=== PATIENT | female | born 1960 | race Caucasian/White ===

== ENCOUNTER 2016-10-28 03:05 | Inpatient (IN) | payer BC ==
[2016-10-28] VITALS (24 sets, daily range): BP systolic 103–160; BP diastolic 52–142; PULSE 84–107; RESP 16–35; TEMP 98.5; Ht 152.4 cm; Wt 101.6 kg
[~2016-10-28] VITALS: Ht 152.4 cm; Wt 101.6 kg
[~2016-10-28 03:05] MED LIST: LORAZEPAM 2 MG INJ ONE
[2016-10-28] MEDS ORDERED: SOD CHLORIDE 0.9% 1,000 ML IV STA (03:09)
[2016-10-28] MEDS ORDERED: LORAZEPAM 2 MG INJ IV STA (03:09)
[2016-10-28 03:21] LABS: ADD SCAN DIFF NO
[2016-10-28 03:23] LABS: ABNORMAL IP MESSAGE 1; BASOPHIL # 0.1 10^3/ul (0.0-0.1); BASOPHILS % 0.3 % (0.0-2.0); EOSINOPHILS # 0.2 10^3/ul (0.0-0.5); EOSINOPHILS % 0.8 % (0.0-7.0); HEMATOCRIT 43.6 % (37.0-47.0); HEMOGLOBIN 12.5 g/dl (12.0-16.0); LYMPHOCYTES % 30.8 % (15.0-51.0); MEAN CORPUSCULAR HEMOGLOBIN 24.1 pg (29.0-33.0); MEAN CORPUSCULAR HGB CONC 28.7 g/dl (32.0-37.0); MEAN PLATELET VOLUME 11.4 fl (7.4-10.4); MONOCYTE # 1.8 10^3/ul (0.3-0.9); MONOCYTES % 6.1 % (0.0-11.0); NEUTROPHIL # 17.7 10^3/ul (1.6-7.5); NEUTROPHILS % 60.5 % (39.0-77.0); PLATELET COUNT 383 10^3/UL (140-415); RED BLOOD COUNT 5.19 10^6/ul (4.20-5.40); RED CELL DISTRIBUTION WIDTH 15.8 % (11.5-14.5); WHITE BLOOD COUNT 29.3 10^3/ul (4.8-10.8)
[2016-10-28 03:44] LABS: ALANINE AMINOTRANSFERASE 26 IU/L (13-69); ALBUMIN 4.9 g/dl (3.3-4.9); ALKALINE PHOSPHATASE 164 IU/L (42-121); ANION GAP 30 (8-16); ASPARTATE AMINO TRANSFERASE 29 IU/L (15-46); BILIRUBIN,INDIRECT 0.1 mg/dl (0-1.1); BILIRUBIN,TOTAL 0.1 mg/dl (0.2-1.3); BLOOD UREA NITROGEN 16 mg/dl (7-20); CALCIUM 9.1 mg/dl (8.4-10.2); CARBON DIOXIDE 13 mmol/L (21-31); CHLORIDE 108 mmol/L (97-110); CREATININE 1.11 mg/dl (0.44-1.00); GLUCOSE 207 mg/dl (70-220); POTASSIUM 3.4 mmol/L (3.5-5.1); SODIUM 148 mmol/L (135-144); TOTAL PROTEIN 8.4 g/dl (6.1-8.1)
--- NOTE | 2016-10-28 03:49 | RADRPT ---
PROCEDURE: CT BRAIN WITHOUT CONTRAST CLINICAL INDICATION: 56-year-old female with seizure. TECHNIQUE: The study was performed utilizing Kaminario VCT 64-slice CT scanner. Direct axial sections were obtained from the foramen magnum to the vertex without the use of intravenous contrast material. Sagittal and coronal reformations were obtained. One or more of the following dose reduc tion techniques were utilized: automated exposure control, adjustment of the mA and/or kV according to patient's size or use of iterative reconstruction technique. The the patient was rescanned second di to motion artifact. The images were viewed on a PACS workstation. CTD/vol = 89.8 mGy; Total Ex am DLP = 1440.5 mGy-cm. COMPARISON: None. FINDINGS: There has been prior right frontotemporal and left frontal craniotomies. There is extensive bifront al encephalomalacia. There is an acute right frontal intracranial hemorrhage measuring approximatel y 3.2 x 4.6 x 3.8 cm with surrounding edema and localized mass effect. There is mild prominence of t he sulci and cisternal spaces consistent with diffuse volume loss. There is no significant midline s hift. The visualized paranasal sinuses and mastoid air cells are without significant abnormal soft t issue. IMPRESSION: 1. Prior right frontotemporal and left frontal craniotomies. 2. Acute right frontal intracranial hemorrhage with surrounding edema and localized mass effect. 3. Extensive bifrontal encephalomalacia. 4. Mild diffuse volume loss. CRITICAL RESULTS: A call report was made to [facility] ER Dr. Rutledge on October 28, 2016 at 03:44 a.m. .Baljinder Wren MD, Date Time Electronically viewed and signed by .Baljinder Wren MD, on 10/28/2016 03:49 .M/
--- NOTE | 2016-10-28 03:54 | RADRPT ---
PROCEDURE: CHEST - 1 VIEW CLINICAL INDICATION: 56-year-old female with seizure. TECHNIQUE: A single frontal AP upright view of the chest was performed. The images were reviewed on a PACS workstation. COMPARISON: None. FINDINGS: The cardiomediastinal silhouette is mildly enlarged. There is a shallow inspiration. There is bila teral lower lung zone subsegmental atelectasis. There is no evidence for an infiltrate. There is n o evidence for congestive heart failure. There is no evidence for pneumothorax. The osseous structur es are intact. IMPRESSION: 1. Cardiomegaly. 2. Shallow inspiration. 3. Bilateral lower lung zone subsegmental atelectasis. .Baljinder Wren MD, MD Date Time Electronically viewed and signed by .Baljinder Wren MD, on 10/28/2016 03:54 .M/
[2016-10-28 03:57] LABS: TROPONIN-I < 0.012 ng/ml (0.00-0.12)
[2016-10-28] MEDS ORDERED: LEVETIRACETAM 1000 MG (PMX) 100 ML IVPB ONE (04:00)
[2016-10-28] MEDS ORDERED: SOD CHLORIDE 0.9% 100 ML ONE (04:25)
[2016-10-28] MEDS ORDERED: IOHEXOL 300MG/ML 150 ML BTL ONE (04:25)
[2016-10-28 04:40] LABS: INR 1.08; PT RATIO 1.1
[2016-10-28] MEDS ORDERED: LORAZEPAM 2 MG INJ IV ONE (05:00)
--- NOTE | 2016-10-28 05:24 | RADRPT ---
PROCEDURE: CTA HEAD October 28, 2016 at 04:46 a.m. CLINICAL INDICATION: 56-year-old female with right frontal intracranial hemorrhage. TECHNIQUE: The study was performed utilizing a [employer] VCT 64-slice multidetector CT scanner . Direct spiral axial sections were obtained through the intracranial vasculature with the use of 10 0 cc of Isovue 370 nonionic intravenous contrast material. One or more of the following dose reduct ion techniques were utilized: automated exposure control, adjustment of the mA and/or kV according t o patient's size or use of iterative reconstruction technique. Coronal and sagittal as well as maxi mal intensity projection reformations were obtained. The images were reviewed on a PACS workstation. COMPARISON: CT brain October 28, 2016 at 03:25 a.m. FINDINGS: There is a hypoplastic left A1 segment of the anterior cerebral artery. The [place] and ve rtebrobasilar system is without evidence for stenosis or occlusion. There is mild mass effect on the right sylvian branches of the middle cerebral artery with inferior displacement. There is no evide nce for an aneurysm or arteriovenous malformation. The visualized sinuses and dural veins are witho ut abnormality. IMPRESSION: 1. 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 2. Mild mass effect with inferior displacement of the sylvian branches of the right middle cerebral artery. 3. No CTA evidence for an arteriovenous malformation. .Baljinder Wren MD, Date Time Electronically viewed and signed by .Baljinder Wren MD, on 10/28/2016 05:24 .M/
--- NOTE | 2016-10-28 05:47 | ERA ---
ER Documentation Chief Complaint Date/Time DATE: 10/28/16 TIME: 05:45 Chief Complaint c/o SE x 1 @ home. Post-ictal. HPI 76-year-old female with us with a seizure at home per family. She was seen earlier than that on the in the hospital for muscle spasm and trapezius region. Patient had 20 seconds of tonic-clonic activity with tongue biting per family. Postictal upon arrival to the ER. Remote history of seizure disorder 5 years ago, however not on any meds with no pregnancies in the past 5 years. ROS All systems reviewed and are negative except as per history of present illness. Medications Home Meds No Active Prescriptions or Reported Meds Allergies Allergies: Coded Allergies: No Known Allergy (Unverified , 10/28/16) PMhx/Soc History of Surgery: Yes (brain surgery 5 yrs ago) Anesthesia Reaction: No Hx Neurological Disorder: Yes (SE) Hx Respiratory Disorders: No Hx Cardiac Disorders: No Hx Psychiatric Problems: No Hx Miscellaneous Medical Probl: No Hx Alcohol Use: No Hx Substance Use: No Hx Tobacco Use: No Smoking Status: Never smoker Physical Exam Vitals Vital Signs Date Time Temp Pulse Resp B/P Pulse Ox O2 Delivery O2 Flow Rate FiO2 10/28/16 05:30 98.1 111 18 156/76 96 Nasal Cannula 4.0 10/28/16 05:00 110 20 178/86 96 Nasal Cannula 4.0 10/28/16 04:21 132 22 175/88 100 Non Rebreather 15.0 10/28/16 03:43 109 22 165/71 100 Non Rebreather 15.0 10/28/16 03:11 98.5 118 26 211/98 100 Physical Exam Const: [] Head: Atraumatic Eyes: Normal Conjunctiva ENT: Normal External Ears, Nose and Mouth. Neck: Full range of motion..~ No meningismus. Resp: Clear to auscultation bilaterally Cardio: Regular rate and rhythm, no murmurs Abd: Soft, non tender, non distended. Normal bowel sounds Skin: No petechiae or rashes Back: No midline or flank tenderness Ext: No cyanosis, or edema Neur: Lethargic but arousable Psych: Normal Mood and Affect Result Diagram: 10/28/16 0312 10/28/16 0312 Results 24 hrs Laboratory Tests Test 10/28/16 03:12 10/28/16 03:15 White Blood Count 29.310^3/ul Red Blood Count 5.1910^6/ul Hemoglobin 12.5g/dl Hematocrit 43.6% Mean Corpuscular Volume 84.0fl Mean Corpuscular Hemoglobin 24.1pg Mean Corpuscular Hemoglobin Concent 28.7g/dl Red Cell Distribution Width 15.8% Platelet Count 28099^3/UL Mean Platelet Volume 11.4fl Neutrophils % 60.5% Lymphocytes % 30.8% Monocytes % 6.1% Eosinophils % 0.8% Basophils % 0.3% Nucleated Red Blood Cells % 0.0/100WBC Neutrophils # 17.710^3/ul Lymphocytes # 9.010^3/ul Monocytes # 1.810^3/ul Eosinophils # 0.210^3/ul Basophils # 0.110^3/ul Nucleated Red Blood Cells # 0.010^3/ul Prothrombin Time 14.0Sec Prothrombin Time Ratio 1.1 INR International Normalized Ratio 1.08 Activated Partial Thromboplast Time 25.0Sec Sodium Level 148mmol/L Potassium Level 3.4mmol/L Chloride Level 108mmol/L Carbon Dioxide Level 13mmol/L Anion Gap 30 Blood Urea Nitrogen 16mg/dl Creatinine 1.11mg/dl Glucose Level 207mg/dl Calcium Level 9.1mg/dl Total Bilirubin 0.1mg/dl Direct Bilirubin 0.00mg/dl Indirect Bilirubin 0.1mg/dl Aspartate Amino Transf (AST/SGOT) 29IU/L Alanine Aminotransferase (ALT/SGPT) 26IU/L Alkaline Phosphatase 164IU/L Troponin I < 0.012ng/ml Total Protein 8.4g/dl Albumin 4.9g/dl Globulin 3.50g/dl Albumin/Globulin Ratio 1.40 Bedside Glucose 194mg/dL Current Medications Medications (Trade) Dose Ordered Sig/Tr Route PRN Reason Start Time Stop Time Status Last Admin Dose Admin Sodium Chloride (NS) 1,000 ml @ 1,000 mls/hr Q1H STAT IV 10/28/16 03:09 10/28/16 04:08 DC 10/28/16 03:38 Lorazepam 2 mg 2 mg ONCE STAT IV 10/28/16 03:09 10/28/16 03:11 DC 10/28/16 03:09 Levetiracetam 100 ml @ 400 mls/hr ONCE ONCE IVPB 10/28/16 04:00 10/28/16 04:14 DC 10/28/16 04:12 Sodium Chloride (NS) 100 ml @ ud STK-MED ONCE .ROUTE 10/28/16 04:25 10/28/16 04:26 DC 10/28/16 04:53 Iohexol (Omnipaque 300mg/ ml) 150 ml STK-MED ONCE .ROUTE 10/28/16 04:25 10/28/16 04:26 DC 10/28/16 04:52 Lorazepam (Ativan) 2 mg ONCE ONCE IV 10/28/16 05:00 10/28/16 05:01 DC 10/28/16 04:58 Procedures/MDM Emergency room course: Patient given Ativan and loaded with Keppra intravenously. Patient may remains lethargic but arousable. Maintaining airway with gag reflex. His O2 sats normal. EKG: Rate/Rhythm: Normal Sinus Rhythm QRS, ST, T-waves: No changes consistent w/ acute ischemia Impression: No evidence of ischemia or arrhythmia Chest X-ray 1V Interpreted by me: Soft Tissue: No acute abnormalities Bones: No acute abnormalities Mediastinum/Cardiac Silhouette/Lungs: No acute abnormalities Initial CT head read as intracerebral hemorrhage per radiology. Spoke to neurosurgeon on-call Dr. Mccullough, recommended CTA to rule out AVM. CTA shows no evidence of AVM. Patient will be admitted to intensive care unit to hospitalist Critical Care: Time: 45 minutes Treatments/Evaluations: Close monitoring and treatment of unstable vital signs, cardiorespiratory, and neurologic status, while maintaining tight balance of fluid, respiratory, and cardiac interventions. Departure Diagnosis: Primary Impression: Seizure disorder Additional Impression: Intracerebral hemorrhage Qualified Code: I61.9 - Nontraumatic intracerebral hemorrhage, unspecified cerebral location, unspecified laterality Condition: Critical LEONIE COVARRUBIAS Oct 28, 2016 05:47
[2016-10-28] MEDS: POTASSIUM CHLORIDE 40 MEQ in SOD CHLORIDE 0.9% 1,000 ML IV SCH ×2 (08:05→16:42)
[2016-10-28] MEDS ORDERED: INSULIN HUMAN REGULAR 100 UNIT in SOD CHLORIDE 0.9% 99 ML IV SCH (09:00)
[2016-10-28] MEDS: FAMOTIDINE 20 MG TAB PO SCH ×2 (09:00→21:00)
[2016-10-28] MEDS ORDERED: PROPOFOL 100 ML IV SCH (09:00)
[2016-10-28] MEDS ORDERED: MIDAZOLAM (DRIP) 50 mg/50 mL 50 ML IV SCH (09:00)
[2016-10-28] MEDS ORDERED: DEXTROSE 50% 50 ML SYRINGE IV PRN ×4 (09:00→14:00)
[2016-10-28] MEDS: ACCU-CHEK XX SCH ×5 (09:59→13:04)
--- NOTE | 2016-10-28 11:38 | RADRPT ---
PROCEDURE: CT Brain without contrast. CLINICAL INDICATION: Intracerebral hemorrhage TECHNIQUE: Routine CT scan of the brain was performed on a high resolution multi detector scanner without intravenous contrast. One or more of the following dose reduction techniques were used: Auto mated exposure control; Adjustment of the mA and/or kV according to patient size; Use of iterative r econstruction technique. CTDI = 43 mGy. DLP = 630 mGy-cm. COMPARISON: No prior relevant examinations are available for comparison. FINDINGS: Hemorrhage: Right frontal hemorrhagic contusion and is unchanged measuring approximately 3.9 x 4.6 x 3.5 cm. Small left frontal petechial hemorrhage and subarachnoid hemorrhage is similar in appearan ce. This produces minimal local mass effect without midline shift or herniation. Edema is present surrounding margins of the hematoma which is slightly increased from prior examination. Acute ischemic changes: No evidence of acute ischemic changes. Parenchymal volume: Mild central parenchymal volume loss is evident. Ventricular system: Moderate disproportionate enlargement of the lateral and third ventricles is sim ilar in appearance compatible with hydrocephalus. Chronic changes: Apparent encephalomalacia from probable prior contusion involving the bilateral inf erior frontal lobes again noted. Mild chronic-appearing microvascular ischemic changes of the supra tentorial white matter. Atherosclerotic calcifications of the cavernous portions of both internal c arotid arteries are present. Extracranial soft tissues: Unremarkable. Calvarium: No fractures. Defects from prior bilateral frontal craniotomies again noted. Paranasal sinuses: Visualized paranasal sinuses are clear. Mastoid air cells: Visualized mastoid air cells are clear. IMPRESSION: No evidence of new intracranial hemorrhage. Unchanged appearance of bilateral frontal hemorrhagic contusions, right greater than left. Mild prominence of the ventricular system suggestive of mild hydrocephalus is unchanged. RPTAT: AADD .Candido Ray MD, MD Date Time Electronically viewed and signed by .Candido Ray MD, MD on 10/28/2016 11:38 .B/
[2016-10-28] MEDS ORDERED: GLUCOSE GEL 15 GRAM TUBE BUCCAL PRN (14:00)
[2016-10-28] MEDS ORDERED: GLUCAGON 1 MG INJ IM PRN (14:00)
[2016-10-28] MEDS ORDERED: GLUCOSE GEL 15 GRAM TUBE PO PRN ×2 (14:00)
--- NOTE | 2016-10-28 15:08 | HP ---
Date/Time of Note Date/Time of Note DATE: 10/28/16 TIME: 15:05 Assessment/Plan VTE Prophylaxis VTE Prophylaxis Intervention: SCD's Lines/Catheters IV [facility] [place] Urinary Cath still in place: Yes Reason Cath still needed: other (indicate) (critically ill) Assessment/Plan Assessment/Plan 56 yo F with pmhx brain tumor sp resection brought in by family following a seizure, neuroimaging revealed a 4 cm R frontal ICH. #ICH: neurosurgery following BP control, BG control speech eval PT/OT evals once additional neuroimaging obtained cont keppra, defer length of therapy or selection of alternate agent to neurosurgery Etio of ICH unclear. Pt without a h/o HTN and BPs have been ok here Pt not on any anticoagulation as outpatient cont ICU level care SCDs only HPI/ROS Admit Date/Time Admit Date/Time Oct 28, 2016 at 05:48 Hx of Present Illness 56 yo F with previous h/o brain tumor (type unknown) sp resection several years ago presented following a seizure this morning. Imaging obtained in the ER notable for an ICH. Pt denies any headache, chest pain. No previous ICH hx. Per discussion with family, at this time pt is a little sleepy but otherwise nearly at her baseline mental status 10pROS neg except as per HPI PMH/Family/Social Past Medical History h/o brain tumor sp resection, specifics unk Social History lives in the community Smoking Status: Never smoker Exam/Review of Systems Vital Signs Vitals Vital Signs Date Time Temp Pulse Resp B/P Pulse Ox O2 Delivery O2 Flow Rate FiO2 10/28/16 13:30 90 26 145/84 97 10/28/16 13:00 Nasal Cannula 10/28/16 12:30 98.8 10/28/16 10:08 4.0 Intake and Output 10/27/16 10/27/16 10/28/16 15:00 23:00 07:00 Intake Total 1100 ml Balance 1100 ml Exam Exam nad, face symmetric, EOMI no mrg lungs clear abd soft no rashes moves exts freely CT results reviewed Labs Result Diagram: 10/28/1631110/28/16311 Medications Medications Current Medications Potassium Chloride/Sodium Chloride (KCl/NS) 1,020 ml @ 100 mls/hr [id number] IV Last administered on 10/28/16t 08:05; Admin Dose 100 MLS/HR; Start 10/28/16 at 06:30 Famotidine (Pepcid) 20 mg Q12 PO ; Start 10/28/16 at 09:00 Dextrose (D50w Syringe) 25 ml Q15M PRN IV Till BS 80 mg/dL or above x2; Start 10/28/16 at 09:00 Dextrose (D50w Syringe) 50 ml Q15M PRN IV Till BS 80 mg/dL or above x2; Start 10/28/16 at 09:00 Insulin Aspart (Novolog Insulin Pen) NOVOLOG *MILD* ALGORI... Q4 SC ; Start at 17:00 Miscellaneous Information 1 ea NOTE XX ; Start 10/28/16 at 14:00 Glucose (Glutose) 15 gm Q15M PRN PO DECREASED GLUCOSE; Start 10/28/16 at 14:00 Glucose (Glutose) 22.5 gm Q15M PRN PO DECREASED GLUCOSE; Start 10/28/16 at 14: 00 Dextrose (D50w Syringe) 25 ml Q15M PRN IV DECREASED GLUCOSE; Start 10/28/16 at 14:00 Dextrose (D50w Syringe) 50 ml Q15M PRN IV DECREASED GLUCOSE; Start 10/28/16 at 14:00 Glucagon (Glucagen) 1 mg Q15M PRN IM DECREASED GLUCOSE; Start 10/28/16 at 14:00 Glucose (Glutose) 15 gm Q15M PRN BUCCAL DECREASED GLUCOSE; Start 10/28/16 at 14 :00 BERKLEY QUINTERO MD Oct 28, 2016 15:07
[2016-10-28] MEDS: INSULIN ASPART [NOVOLOG] 3 ML PEN SC SCH ×2 (17:00→21:00)
[2016-10-28] MEDS ORDERED: MIDAZOLAM 1 MG/ML 2 ML INJ IV ONE (19:30)
[2016-10-28] MEDS ORDERED: MIDAZOLAM 1 MG/ML 2 ML INJ IV PRN (20:00)
[2016-10-28] MEDS: LEVETIRACETAM 500 MG (PMX) 100 ML IVPB SCH (21:30)
--- NOTE | 2016-10-28 22:31 | CONS ---
Date/Time of Note Date/Time of Note DATE: 10/28/16 TIME: 22:23 Assessment/Plan Assessment/Plan Chief Complaint/Hosp Course PHYSICAL EXAMINATION: GENERAL: Not in acute distress, lying in bed. HEENT: Normocephalic, atraumatic head. NECK: No carotid bruits. No thyromegaly. LUNGS: Clear to auscultation bilaterally. CARDIAC: Normal cardiac rhythm and sounds. ABDOMEN: Soft. EXTREMITIES: No cyanosis, clubbing, or edema. Tenderness to palpation in the right buttock and lumbar spinous processes. NEUROLOGIC: She is awake, alert, and oriented x 2 with fluent speech. Cranial nerve examination shows intact visual hunt bilaterally. Pupils round, reactive to light from 3 to 2 mm bilaterally. Extraocular movements intact without nystagmus. Symmetrical face. Preserved facial strength and sensation. Tongue is in midline. Palate elevates symmetrically. Motor strength examination is preserved in all extremities. Normal bulk, tone, and strength. Sensory examination shows normal perception of pinprick and touch. Deep tendon reflexes 2+ . Equivocal toes bilaterally. Coordination preserved on [id number] testing. No dysmetria or tremor. Gait was not assessed. IMPRESSION: Frontal astrocytoma, s/p chemo, radiation and surgery 5 years ago. Right frontal ICH, also left frontal possible contusion on CT. MRI brain pending. No hx of trauma or signs of trauma. Bleeding may relate to neoplasm. Now on keppra. No seizures. NS on case. Problems: Consultation Date/Type/Reason Admit Date/Time Oct 28, 2016 at 05:48 Type of Consultation: neurology Hx of Present Illness 56 y/o female admitted following witnessed seizure, found to have right frontal hemorrhage, some left frontal possible contusion as well. No definite hx of recent trauma. 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 Never seizures. Now started on keppra, no seizures since admission. EEG intermittent right frontal sharps, no ongoing seizures Past Medical History Medical History: diabetes, peptic ulcer disease Past Surgical History neurosurgery 5 years ago Family History Significant Family History: no pertinent family hx Social History Alcohol Use: none Smoking Status: Never smoker Drug Use: none Exam/Review of Systems Vital Signs Vitals Vital Signs Date Time Temp Pulse Resp B/P Pulse Ox O2 Delivery O2 Flow Rate FiO2 10/28/16 19:00 88 33 129/61 98 Nasal Cannula 10/28/16 16:00 98.4 10/28/16 10:08 4.0 Intake and Output 10/27/16 10/27/16 10/28/16 15:00 23:00 07:00 Intake Total 1100 ml Balance 1100 ml Results Result Diagram: 10/28/16 0312 10/28/16 0312 Results 24 hrs Laboratory Tests Test 10/28/16 03:12 10/28/16 03:15 10/28/16 09:42 10/28/16 13:03 White Blood Count 29.3 H Red Blood Count 5.19 Hemoglobin 12.5 Hematocrit 43.6 Mean Corpuscular Volume 84.0 Mean Corpuscular Hemoglobin 24.1 L Mean Corpuscular Hemoglobin Concent 28.7 L Red Cell Distribution Width 15.8 H Platelet Count 383 Mean Platelet Volume 11.4 H Neutrophils % 60.5 Lymphocytes % 30.8 Monocytes % 6.1 Eosinophils % 0.8 Basophils % 0.3 Nucleated Red Blood Cells % 0.0 Neutrophils # 17.7 H Lymphocytes # 9.0 H Monocytes # 1.8 H Eosinophils # 0.2 Basophils # 0.1 Nucleated Red Blood Cells # 0.0 Prothrombin Time 14.0 Prothrombin Time Ratio 1.1 INR International Normalized Ratio 1.08 Activated Partial Thromboplast Time 25.0 Sodium Level 148 H Potassium Level 3.4 L Chloride Level 108 Carbon Dioxide Level 13 L Anion Gap 30 H Blood Urea Nitrogen 16 Creatinine 1.11 H Glucose Level 207 Calcium Level 9.1 Total Bilirubin 0.1 L Direct Bilirubin 0.00 Indirect Bilirubin 0.1 Aspartate Amino Transf (AST/SGOT) 29 Alanine Aminotransferase (ALT/SGPT) 26 Alkaline Phosphatase 164 H Troponin I < 0.012 Total Protein 8.4 H Albumin 4.9 Globulin 3.50 H Albumin/Globulin Ratio 1.40 Bedside Glucose 194 126 113 Test 10/28/16 19:11 10/28/16 21:36 Bedside Glucose 124 111 Medications Medications Current Medications Potassium Chloride/Sodium Chloride (KCl/NS) 1,020 ml @ 100 mls/hr [id number] IV Last administered on 10/28/16t 16:42; Admin Dose 100 MLS/HR; Start 10/28/16 at 06:30 Famotidine (Pepcid) 20 mg Q12 PO ; Start 10/28/16 at 09:00 Dextrose (D50w Syringe) 25 ml Q15M PRN IV Till BS 80 mg/dL or above x2; Start 10/28/16 at 09:00 Dextrose (D50w Syringe) 50 ml Q15M PRN IV Till BS 80 mg/dL or above x2; Start 10/28/16 at 09:00 Insulin Aspart (Novolog Insulin Pen) NOVOLOG *MILD* ALGORI... Q4 SC ; Start at 17:00 Miscellaneous Information 1 ea NOTE XX ; Start 10/28/16 at 14:00 Glucose (Glutose) 15 gm Q15M PRN PO DECREASED GLUCOSE; Start 10/28/16 at 14:00 Glucose (Glutose) 22.5 gm Q15M PRN PO DECREASED GLUCOSE; Start 10/28/16 at 14: 00 Dextrose (D50w Syringe) 25 ml Q15M PRN IV DECREASED GLUCOSE; Start 10/28/16 at 14:00 Dextrose (D50w Syringe) 50 ml Q15M PRN IV DECREASED GLUCOSE; Start 10/28/16 at 14:00 Glucagon (Glucagen) 1 mg Q15M PRN IM DECREASED GLUCOSE; Start 10/28/16 at 14:00 Glucose 15 gm 15 gm Q15M PRN BUCCAL DECREASED GLUCOSE; Start 10/28/16 at 14:00 Levetiracetam (Keppra 500 Mg/ 100ml (Pmx)) 100 ml @ 400 mls/hr Q12 IVPB Last administered on 10/28/16t 21:30; Admin Dose 400 MLS/HR; Start 10/28/16 at 21:00 Midazolam HCl (Versed) 1 mg ONCE PRN IV ANXIETY; Start 10/28/16 at 20:00 MONA CAMP MD Oct 28, 2016 22:31
[2016-10-29] VITALS (23 sets, daily range): BP systolic 102–153; BP diastolic 62–112; PULSE 81–95; RESP 16–37
[2016-10-29] MEDS: INSULIN ASPART [NOVOLOG] 3 ML PEN SC SCH ×6 (01:00→21:00)
[2016-10-29] MEDS: POTASSIUM CHLORIDE 40 MEQ in SOD CHLORIDE 0.9% 1,000 ML IV SCH (06:23)
[2016-10-29 06:57] LABS: ADD SCAN DIFF NO
[2016-10-29 07:07] LABS: BASOPHIL # 0.1 10^3/ul (0.0-0.1); BASOPHILS % 0.4 % (0.0-2.0); EOSINOPHILS # 0.2 10^3/ul (0.0-0.5); EOSINOPHILS % 0.9 % (0.0-7.0); HEMATOCRIT 36.4 % (37.0-47.0); HEMOGLOBIN 11.3 g/dl (12.0-16.0); LYMPHOCYTES # 1.9 10^3/ul (0.8-2.9); LYMPHOCYTES % 11.9 % (15.0-51.0); MEAN CORPUSCULAR HEMOGLOBIN 24.4 pg (29.0-33.0); MEAN CORPUSCULAR VOLUME 78.6 fl (82.0-101.0); MEAN PLATELET VOLUME 10.8 fl (7.4-10.4); MONOCYTE # 0.7 10^3/ul (0.3-0.9); MONOCYTES % 4.2 % (0.0-11.0); NEUTROPHIL # 13.4 10^3/ul (1.6-7.5); NEUTROPHILS % 82.1 % (39.0-77.0); PLATELET COUNT 310 10^3/UL (140-415); RED BLOOD COUNT 4.63 10^6/ul (4.20-5.40); RED CELL DISTRIBUTION WIDTH 15.4 % (11.5-14.5); WHITE BLOOD COUNT 16.3 10^3/ul (4.8-10.8)
[2016-10-29 07:24] LABS: INR 1.11; PROTIME 14.3 Sec (12.2-14.2); PT RATIO 1.1
[2016-10-29 07:26] LABS: PARTIAL THROMBOPLASTIN TIME 29.8 Sec (25.0-35.0)
[2016-10-29 08:20] LABS: CALCIUM 8.4 mg/dl (8.4-10.2); CREATININE 0.52 mg/dl (0.44-1.00); POTASSIUM 4.4 mmol/L (3.5-5.1)
[2016-10-29] MEDS: FAMOTIDINE 20 MG TAB PO SCH ×2 (08:30→21:03)
[2016-10-29] MEDS: LEVETIRACETAM 500 MG (PMX) 100 ML IVPB SCH (08:30)
--- NOTE | 2016-10-29 11:36 | PN ---
Date/Time of Note Date/Time of Note DATE: 10/29/16 TIME: 11:35 Assessment/Plan VTE Prophylaxis VTE Prophylaxis Intervention: SCD's Lines/Catheters IV Catheter Type (from Nrsg): Peripheral IV Urinary Cath still in place: Yes Reason Cath still needed: other (indicate) (critically ill) Assessment/Plan Assessment/Plan 56 yo F with pmhx brain tumor sp resection brought in by family following a seizure, neuroimaging revealed a 4 cm R frontal ICH. #ICH: neurosurgery and neurology following BP control, BG control sp speech eval PT/OT evals once additional neuroimaging obtained cont keppra, defer length of therapy or selection of alternate agent to neurosurgery/neurology Etio of ICH unclear. Pt without a h/o HTN and BPs have been ok here Pt not on any anticoagulation as outpatient cont ICU level care-->to floor when cleared by neuro/neurosurg SCDs only Subjective 24 Hr Interval Summary Free Text/Dictation Much more awake this AM. BP ok. Awaiting MRI Exam/Review of Systems Vital Signs Vitals Vital Signs Date Time Temp Pulse Resp B/P Pulse Ox O2 Delivery O2 Flow Rate FiO2 10/29/16 10:00 87 26 114/81 93 Room Air 10/29/16 08:00 98.3 10/28/16 10:08 4.0 Intake and Output 10/28/16 10/28/16 10/29/16 15:00 23:00 07:00 Intake Total 1100 ml 120 ml Output Total 1795 ml 625 ml 575 ml Balance -1795 ml 475 ml -455 ml Exam nad ,sitting up in bed, responds to questions in [place] no mrg lungs clear abd soft no rashes Results Result Diagram: 10/29/16 0645 10/29/16 0645 Results 24 hrs Laboratory Tests Test 10/28/16 13:03 10/28/16 19:11 10/28/16 21:36 10/29/16 01:43 Bedside Glucose 113 124 111 113 Test 10/29/16 06:21 10/29/16 06:45 10/29/16 08:30 Bedside Glucose 111 102 White Blood Count 16.3 #H Red Blood Count 4.63 Hemoglobin 11.3 L Hematocrit 36.4 L Mean Corpuscular Volume 78.6 L Mean Corpuscular Hemoglobin 24.4 L Mean Corpuscular Hemoglobin Concent 31.0 L Red Cell Distribution Width 15.4 H Platelet Count 310 Mean Platelet Volume 10.8 H Neutrophils % 82.1 H Lymphocytes % 11.9 L Monocytes % 4.2 Eosinophils % 0.9 Basophils % 0.4 Nucleated Red Blood Cells % 0.0 Neutrophils # 13.4 H Lymphocytes # 1.9 Monocytes # 0.7 Eosinophils # 0.2 Basophils # 0.1 Nucleated Red Blood Cells # 0.0 Prothrombin Time 14.3 H Prothrombin Time Ratio 1.1 INR International Normalized Ratio 1.11 Activated Partial Thromboplast Time 29.8 Sodium Level 140 Potassium Level 4.4 Chloride Level 111 H Carbon Dioxide Level 21 Anion Gap 12 # Blood Urea Nitrogen 10 Creatinine 0.52 Glucose Level 109 # Hemoglobin A1c 7.2 H Calcium Level 8.4 Medications Medications Current Medications Potassium Chloride/Sodium Chloride (KCl/NS) 1,020 ml @ 100 mls/hr [id number] IV Last administered on 10/29/16 06:23; Admin Dose 100 MLS/HR; Start 10/28/16 at 06:30 Famotidine (Pepcid) 20 mg Q12 PO ; Start 10/28/16 at 09:00 Dextrose (D50w Syringe) 25 ml Q15M PRN IV Till BS 80 mg/dL or above x2; Start 10/28/16 at 09:00 Dextrose (D50w Syringe) 50 ml Q15M PRN IV Till BS 80 mg/dL or above x2; Start 10/28/16 at 09:00 Insulin Aspart (Novolog Insulin Pen) NOVOLOG *MILD* ALGORI... Q4 SC ; Start at 17:00 Miscellaneous Information 1 ea NOTE XX ; Start 10/28/16 at 14:00 Glucose (Glutose) 15 gm Q15M PRN PO DECREASED GLUCOSE; Start 10/28/16 at 14:00 Glucose (Glutose) 22.5 gm Q15M PRN PO DECREASED GLUCOSE; Start 10/28/16 at 14: 00 Dextrose (D50w Syringe) 25 ml Q15M PRN IV DECREASED GLUCOSE; Start 10/28/16 at 14:00 Dextrose (D50w Syringe) 50 ml Q15M PRN IV DECREASED GLUCOSE; Start 10/28/16 at 14:00 Glucagon (Glucagen) 1 mg Q15M PRN IM DECREASED GLUCOSE; Start 10/28/16 at 14:00 Glucose 15 gm 15 gm Q15M PRN BUCCAL DECREASED GLUCOSE; Start 10/28/16 at 14:00 Levetiracetam (Keppra 500 Mg/ 100ml (Pmx)) 100 ml @ 400 mls/hr Q12 IVPB Last administered on 10/29/16t 08:30; Admin Dose 400 MLS/HR; Start 10/28/16 at 21:00 Midazolam HCl (Versed) 1 mg ONCE PRN IV ANXIETY; Start 10/28/16 at 20:00 BERKLEY QUINTERO MD Oct 29, 2016 11:35
[2016-10-29] MEDS ORDERED: LEVETIRACETAM 1000 MG (PMX) 100 ML IVPB ONE (13:30)
[2016-10-29] MEDS ORDERED: LEVETIRACETAM 500 MG TAB PO SCH (21:00)
[2016-10-29] MEDS: LEVETIRACETAM 500 MG TAB PO SCH (21:03)
[2016-10-30] VITALS (24 sets, daily range): BP systolic 92–155; BP diastolic 51–119; PULSE 77–112; RESP 15–28
[2016-10-30] MEDS: INSULIN ASPART [NOVOLOG] 3 ML PEN SC SCH ×4 (06:32→20:53)
--- NOTE | 2016-10-30 06:47 | RADRPT ---
PROCEDURE: MR Brain with and without contrast. CLINICAL INDICATION: History of brain tumor resection.. Frontal intracranial hemorrhage. TECHNIQUE: An MRI of the brain was performed on a 1.5 jessica scanner utilizing the following sequen rich: Sagittal and axial T1 weighted, axial T2 weighted, coronal GRE, axial diffusion weighted with A DC mapping, and post contrast axial and coronal T1 weighted and axial FLAIR. 10 cc of Magnevist was given intravenously without complication. Brain lab protocol. COMPARISON: CT brain 10/28/2016 FINDINGS: Right frontotemporal and left frontal craniotomy. There is a large acute and subacute hemorrhagic c ontusions involving the right frontal lobe to the level of the middle frontal gyrus. This extends m edially into the medial and lateral orbital gyri. This more medial components more conspicuous on M RI. Given differences in technique, this has not increased in size appreciably with the more latera l component measuring approximately 4.5 cm in greatest dimension and the more medial component measu ring approximately 3 cm in greatest dimension. Mild surrounding vasogenic edema. Stable mass effect on the frontal horn of the right lateral ventricle. The small left frontal hemorrhage noted on CT d emonstrates an area of signal loss without significant surrounding vasogenic edema. The subarachnoi d hemorrhage previously described is not well appreciated the current study. Encephalomalacia of the left frontal lobe likely right frontal lobe with diffuse underlying T2 signa l hyperintensity compatible with gliosis. Ex vacuo dilatation of the frontal horn of the left later al ventricle. No restricted diffusion to suggest acute or early subacute ischemic infarct. Post contrast imaging w as limited due to patient motion and image degradation, however, there is no gross evidence of patho logic enhancement of the brain parenchyma, leptomeninges or dura. No other parenchymal foci of hypointense signal abnormality are seen on the GRE images to suggest th e presence of blood degradation products. The remaining brain parenchyma is grossly normal morphology with mild central cerebral volume loss. The ventricles are mildly disproportionate in size relative to sulcal prominence compatible with ch ronic appearing hydrocephalus. The posterior fossa contents, brainstem, craniocervical junction, seventh - eighth cranial nerve com plexes, orbits, paranasal sinuses, and pituitary axis are unremarkable. No calvarial lesion identifi ed. Normal flow voids are visible in the proximal intracranial arteries and dural sinuses, indicating pa tency. IMPRESSION: 1. Stable large right and small left frontal lobe hemorrhagic contusions. No new or acute intracran ial hemorrhage. 2. Stable bifrontal encephalomalacia with vasogenic edema surrounding the areas of hemorrhagic cont usion and areas of gliosis. 3. Ventriculomegaly compatible with mild chronic appearing hydrocephalus . RPTAT:AAJJ Physician Tristan Date Time Electronically viewed and signed by Physician Tristan on 10/29/2016 13:31 GABY/
[2016-10-30 08:31] LABS: ADD SCAN DIFF NO
[2016-10-30 08:37] LABS: BASOPHIL # 0.1 10^3/ul (0.0-0.1); BASOPHILS % 0.3 % (0.0-2.0); EOSINOPHILS # 0.3 10^3/ul (0.0-0.5); EOSINOPHILS % 1.6 % (0.0-7.0); HEMATOCRIT 39.7 % (37.0-47.0); HEMOGLOBIN 12.2 g/dl (12.0-16.0); LYMPHOCYTES # 1.8 10^3/ul (0.8-2.9); LYMPHOCYTES % 11.4 % (15.0-51.0); MEAN CORPUSCULAR HEMOGLOBIN 24.1 pg (29.0-33.0); MEAN CORPUSCULAR HGB CONC 30.7 g/dl (32.0-37.0); MEAN CORPUSCULAR VOLUME 78.3 fl (82.0-101.0); MEAN PLATELET VOLUME 10.8 fl (7.4-10.4); MONOCYTE # 0.8 10^3/ul (0.3-0.9); MONOCYTES % 4.9 % (0.0-11.0); NEUTROPHIL # 13.1 10^3/ul (1.6-7.5); NEUTROPHILS % 81.3 % (39.0-77.0); PLATELET COUNT 322 10^3/UL (140-415); RED BLOOD COUNT 5.07 10^6/ul (4.20-5.40); RED CELL DISTRIBUTION WIDTH 15.7 % (11.5-14.5); WHITE BLOOD COUNT 16.1 10^3/ul (4.8-10.8)
--- NOTE | 2016-10-30 08:43 | PN ---
Date/Time of Note Date/Time of Note DATE: 10/30/16 TIME: 08:43 Assessment/Plan VTE Prophylaxis VTE Prophylaxis Intervention: SCD's Lines/Catheters IV [facility] Saline Lock Urinary Cath still in place: No Assessment/Plan Assessment/Plan 56 yo F with pmhx brain tumor sp resection brought in by family following a seizure, neuroimaging revealed a 4 cm R frontal ICH. #ICH: neurosurgery and neurology following BP control, BG control sp speech eval PT/OT evals once seizures under better control cont keppra, defer length of therapy or selection of alternate agent to neurosurgery/neurology Etio of ICH unclear. Pt without a h/o HTN and BPs have been ok here. Possibly 2/ 2 fall? Pt not on any anticoagulation as outpatient cont ICU level care-->to floor when cleared by neuro/neurosurg. needs better seizure control SCDs only Subjective 24 Hr Interval Summary Free Text/Dictation Interim notes reviewed, pt with seizures and AEDs adjusted by neuro. Pt to remain in ICU per NS Pt without complaint Exam/Review of Systems Vital Signs Vitals Vital Signs Date Time Temp Pulse Resp B/P Pulse Ox O2 Delivery O2 Flow Rate FiO2 10/30/16 07:00 84 27 115/101 93 Room Air 10/30/16 04:00 98.4 10/28/16 10:08 4.0 Intake and Output 10/29/16 10/29/16 10/30/16 15:00 23:00 07:00 Intake Total 540 ml 740 ml 400 ml Output Total 825 ml 675 ml 800 ml Balance -285 ml 65 ml -400 ml Exam nad no mrg lungs clear abd soft moves exts Results Result Diagram: 10/30/16 0803 10/29/16 0645 Results 24 hrs Laboratory Tests Test 10/29/16 12:42 10/29/16 17:16 10/29/16 20:59 10/30/16 06:32 Bedside Glucose 117 116 109 107 Test 10/30/16 08:03 White Blood Count 16.1 H Red Blood Count 5.07 Hemoglobin 12.2 Hematocrit 39.7 Mean Corpuscular Volume 78.3 L Mean Corpuscular Hemoglobin 24.1 L Mean Corpuscular Hemoglobin Concent 30.7 L Red Cell Distribution Width 15.7 H Platelet Count 322 Mean Platelet Volume 10.8 H Neutrophils % 81.3 H Lymphocytes % 11.4 L Monocytes % 4.9 Eosinophils % 1.6 Basophils % 0.3 Nucleated Red Blood Cells % 0.0 Neutrophils # 13.1 H Lymphocytes # 1.8 Monocytes # 0.8 Eosinophils # 0.3 Basophils # 0.1 Nucleated Red Blood Cells # 0.0 Medications Medications Current Medications Famotidine (Pepcid) 20 mg Q12 PO Last administered on 10/29/16 21:03; Admin Dose 20 MG; Start 10/28/16 at 09:00 Dextrose (D50w Syringe) 25 ml Q15M PRN IV Till BS 80 mg/dL or above x2; Start 10/28/16 at 09:00 Dextrose (D50w Syringe) 50 ml Q15M PRN IV Till BS 80 mg/dL or above x2; Start 10/28/16 at 09:00 Miscellaneous Information 1 ea NOTE XX ; Start 10/28/16 at 14:00 Glucose (Glutose) 15 gm Q15M PRN PO DECREASED GLUCOSE; Start 10/28/16 at 14:00 Glucose (Glutose) 22.5 gm Q15M PRN PO DECREASED GLUCOSE; Start 10/28/16 at 14: 00 Dextrose (D50w Syringe) 25 ml Q15M PRN IV DECREASED GLUCOSE; Start 10/28/16 at 14:00 Dextrose (D50w Syringe) 50 ml Q15M PRN IV DECREASED GLUCOSE; Start 10/28/16 at 14:00 Glucagon (Glucagen) 1 mg Q15M PRN IM DECREASED GLUCOSE; Start 10/28/16 at 14:00 Glucose (Glutose) 15 gm Q15M PRN BUCCAL DECREASED GLUCOSE; Start 10/28/16 at 14 :00 Midazolam HCl (Versed) 1 mg ONCE PRN IV ANXIETY Last administered on 10/29/16 12:20; Admin Dose 1 MG; Start 10/28/16 at 20:00 Levetiracetam (Keppra) 1,000 mg BID PO Last administered on 10/29/16 21:03; Admin Dose 1,000 MG; Start 10/29/16 at 21:00 BERKLEY QUINTERO MD Oct 30, 2016 08:43
[2016-10-30 08:56] LABS: CALCIUM 8.5 mg/dl (8.4-10.2); CREATININE 0.59 mg/dl (0.44-1.00)
[2016-10-30] MEDS: FAMOTIDINE 20 MG TAB PO SCH ×2 (08:58→20:49)
[2016-10-30] MEDS: LEVETIRACETAM 500 MG TAB PO SCH ×3 (08:58→20:49)
--- NOTE | 2016-10-30 22:11 | CONS ---
Date/Time of Note Date/Time of Note DATE: 10/30/16 TIME: 22:09 Consult Date/Type/Reason Admit Date/Time Oct 28, 2016 at 05:48 Initial Consult Date Type of Consultation: neurology Subjective few complex partial seizures, staring, head turning today; I increased keppra 1000 tid, last seizure 1 h ago. No headaches Objective Vital Signs Date Time Temp Pulse Resp B/P Pulse Ox O2 Delivery O2 Flow Rate FiO2 10/30/16 20:00 84 10/30/16 19:00 20 107/67 95 Room Air 10/30/16 16:00 98.4 10/28/16 10:08 4.0 Intake and Output 10/29/16 10/29/16 10/30/16 15:00 23:00 07:00 Intake Total 540 ml 740 ml 400 ml Output Total 825 ml 675 ml 800 ml Balance -285 ml 65 ml -400 ml Results/Medications Result Diagram: 10/30/16 0803 10/30/16 0803 Results 24 hrs Laboratory Tests Test 10/30/16 06:32 10/30/16 08:03 10/30/16 12:51 10/30/16 17:19 Bedside Glucose 107 108 114 White Blood Count 16.1 H Red Blood Count 5.07 Hemoglobin 12.2 Hematocrit 39.7 Mean Corpuscular Volume 78.3 L Mean Corpuscular Hemoglobin 24.1 L Mean Corpuscular Hemoglobin Concent 30.7 L Red Cell Distribution Width 15.7 H Platelet Count 322 Mean Platelet Volume 10.8 H Neutrophils % 81.3 H Lymphocytes % 11.4 L Monocytes % 4.9 Eosinophils % 1.6 Basophils % 0.3 Nucleated Red Blood Cells % 0.0 Neutrophils # 13.1 H Lymphocytes # 1.8 Monocytes # 0.8 Eosinophils # 0.3 Basophils # 0.1 Nucleated Red Blood Cells # 0.0 Sodium Level 135 Potassium Level 4.0 Chloride Level 105 Carbon Dioxide Level 24 Anion Gap 10 Blood Urea Nitrogen 10 Creatinine 0.59 Glucose Level 112 Calcium Level 8.5 Test 10/30/16 20:53 Bedside Glucose 120 Medications Current Medications Famotidine (Pepcid) 20 mg Q12 PO Last administered on 10/30/16t 20:49; Admin Dose 20 MG; Start 10/28/16 at 09:00 Dextrose (D50w Syringe) 25 ml Q15M PRN IV Till BS 80 mg/dL or above x2; Start 10/28/16 at 09:00 Dextrose (D50w Syringe) 50 ml Q15M PRN IV Till BS 80 mg/dL or above x2; Start 10/28/16 at 09:00 Miscellaneous Information 1 ea NOTE XX ; Start 10/28/16 at 14:00 Glucose (Glutose) 15 gm Q15M PRN PO DECREASED GLUCOSE; Start 10/28/16 at 14:00 Glucose (Glutose) 22.5 gm Q15M PRN PO DECREASED GLUCOSE; Start 10/28/16 at 14: 00 Dextrose (D50w Syringe) 25 ml Q15M PRN IV DECREASED GLUCOSE; Start 10/28/16 at 14:00 Dextrose (D50w Syringe) 50 ml Q15M PRN IV DECREASED GLUCOSE; Start 10/28/16 at 14:00 Glucagon (Glucagen) 1 mg Q15M PRN IM DECREASED GLUCOSE; Start 10/28/16 at 14:00 Glucose (Glutose) 15 gm Q15M PRN BUCCAL DECREASED GLUCOSE; Start 10/28/16 at 14 :00 Midazolam HCl (Versed) 1 mg ONCE PRN IV ANXIETY Last administered on 10/29/16 12:20; Admin Dose 1 MG; Start 10/28/16 at 20:00 Levetiracetam (Keppra) 1,000 mg TID PO Last administered on 10/30/16 20:49; Admin Dose 1,000 MG; Start 10/30/16 at 13:00 Assessment/Plan Chief Complaint/Hosp Course PHYSICAL EXAMINATION: GENERAL: Not in acute distress, lying in bed. HEENT: Normocephalic, atraumatic head. NECK: No carotid bruits. No thyromegaly. LUNGS: Clear to auscultation bilaterally. CARDIAC: Normal cardiac rhythm and sounds. ABDOMEN: Soft. EXTREMITIES: No cyanosis, clubbing, or edema. Tenderness to palpation in the right buttock and lumbar spinous processes. NEUROLOGIC: She is awake, alert, and oriented x 3 with fluent speech. Cranial nerve examination shows intact visual hunt bilaterally. Pupils round, reactive to light from 3 to 2 mm bilaterally. Extraocular movements intact without nystagmus. Symmetrical face. Preserved facial strength and sensation. Tongue is in midline. Palate elevates symmetrically. Motor strength examination is preserved in all extremities. Normal bulk, tone, and strength. Sensory examination shows normal perception of pinprick and touch. Deep tendon reflexes 2+ . Equivocal toes bilaterally. Coordination preserved on [id number] testing. No dysmetria or tremor. Gait was not assessed. IMPRESSION: Frontal astrocytoma, s/p chemo, radiation and surgery 5 years ago. Right frontal ICH, also left frontal possible contusion on CT/MRI. No hx of trauma or signs of trauma. Bleeding may relate to neoplasm. Now on keppra, still seizures. I'll add dilantin. CHRIS on case. Problems: MONA CAMP MD Oct 30, 2016 22:11
--- NOTE | 2016-10-30 22:20 | PN ---
Date/Time of Note Date/Time of Note DATE: 10/30/16 TIME: 22:15 Copies To: Additional comments: EEG report 10-28-16. On Keppra 500 bid Background activity of small-medium amplitude ranging in frequency 8-10 Hz, at times 4-6 Hz, intermixing with smaller and faster beta activity. No ongoing seizures. Intermittent right frontal spikes, likley epileptogenic given hx Impression: Abnormal study secondary to background slowing and right frontal epileptiform activity MONA CAMP MD Oct 30, 2016 22:20
[2016-10-30] MEDS ORDERED: PHENYTOIN 1,500 MG in SOD CHLORIDE 0.9% 150 ML IV ONE (23:30)
[2016-10-31] VITALS (25 sets, daily range): BP systolic 107–157; BP diastolic 66–133; PULSE 76–92; RESP 12–33
[2016-10-31] MEDS: LORAZEPAM 2 MG INJ IV PRN ×2 (04:31→21:20)
[2016-10-31 05:57] LABS: BASOPHIL # 0.1 10^3/ul (0.0-0.1); BASOPHILS % 0.4 % (0.0-2.0); EOSINOPHILS # 0.3 10^3/ul (0.0-0.5); EOSINOPHILS % 1.5 % (0.0-7.0); HEMATOCRIT 39.8 % (37.0-47.0); HEMOGLOBIN 12.5 g/dl (12.0-16.0); LYMPHOCYTES # 1.9 10^3/ul (0.8-2.9); LYMPHOCYTES % 11.8 % (15.0-51.0); MEAN CORPUSCULAR HEMOGLOBIN 24.6 pg (29.0-33.0); MEAN CORPUSCULAR HGB CONC 31.4 g/dl (32.0-37.0); MEAN CORPUSCULAR VOLUME 78.2 fl (82.0-101.0); MEAN PLATELET VOLUME 10.8 fl (7.4-10.4); MONOCYTE # 0.7 10^3/ul (0.3-0.9); MONOCYTES % 4.5 % (0.0-11.0); NEUTROPHIL # 13.4 10^3/ul (1.6-7.5); NEUTROPHILS % 81.3 % (39.0-77.0); PLATELET COUNT 326 10^3/UL (140-415); RED BLOOD COUNT 5.09 10^6/ul (4.20-5.40); RED CELL DISTRIBUTION WIDTH 15.4 % (11.5-14.5); WHITE BLOOD COUNT 16.4 10^3/ul (4.8-10.8)
[2016-10-31 05:59] LABS: ADD SCAN DIFF NO
[2016-10-31 06:50] LABS: CALCIUM 8.5 mg/dl (8.4-10.2); CREATININE 0.57 mg/dl (0.44-1.00); POTASSIUM 3.5 mmol/L (3.5-5.1)
[2016-10-31] MEDS: INSULIN ASPART [NOVOLOG] 3 ML PEN SC SCH ×4 (07:01→21:00)
[2016-10-31] MEDS: FAMOTIDINE 20 MG TAB PO SCH ×2 (09:02→21:19)
[2016-10-31] MEDS: LEVETIRACETAM 500 MG TAB PO SCH ×3 (09:02→21:20)
--- NOTE | 2016-10-31 10:01 | PN ---
Date/Time of Note Date/Time of Note DATE: 10/31/16 TIME: 09:59 Assessment/Plan VTE Prophylaxis VTE Prophylaxis Intervention: SCD's Lines/Catheters IV [facility] Type (from [facility]): Peripheral IV Urinary Cath still in place: No Assessment/Plan Assessment/Plan 56 yo F with pmhx brain tumor sp resection brought in by family following a seizure, neuroimaging revealed a 4 cm R frontal ICH. #ICH: neurosurgery and neurology following BP control, BG control sp speech eval PT/OT evals once seizures under better control AEDs as per neuro Etio of ICH unclear. Pt without a h/o HTN and BPs have been ok here. Possibly 2/ 2 fall? Pt not on any anticoagulation as outpatient cont ICU level care-->to floor when cleared by neuro/neurosurg. needs better seizure control SCDs only Subjective 24 Hr Interval Summary Free Text/Dictation I witnessed absence episodes while rounding on patient this AM. While using Estonian language line to facilitate communication, pt had 2 episodes in which she turned her head to the left and stared off. Did not respond to verbal or tactile stimuli during these episodes each of which was ~20-30 seconds in duration Exam/Review of Systems Vital Signs Vitals Vital Signs Date Time Temp Pulse Resp B/P Pulse Ox O2 Delivery O2 Flow Rate FiO2 10/31/16 08:00 80 10/31/16 07:00 112/68 89 Room Air 10/31/16 06:00 12 10/31/16 04:00 98.2 10/28/16 10:08 4.0 Intake and Output 10/30/16 10/30/16 10/31/16 15:00 23:00 07:00 Intake Total 800 ml 550 ml 180 ml Output Total 675 ml 200 ml Balance 125 ml 350 ml 180 ml Exam nad no mrg lungs clear abd soft no rashes neuro eval notable for staring/absence episodes as noted above Results Result Diagram: 10/31/1652310/31/16523 Results 24 hrs Laboratory Tests Test 10/30/16 12:51 10/30/16 17:19 10/30/16 20:53 10/31/16 05:24 Bedside Glucose 108 114 120 White Blood Count 16.4 H Red Blood Count 5.09 Hemoglobin 12.5 Hematocrit 39.8 Mean Corpuscular Volume 78.2 L Mean Corpuscular Hemoglobin 24.6 L Mean Corpuscular Hemoglobin Concent 31.4 L Red Cell Distribution Width 15.4 H Platelet Count 326 Mean Platelet Volume 10.8 H Neutrophils % 81.3 H Lymphocytes % 11.8 L Monocytes % 4.5 Eosinophils % 1.5 Basophils % 0.4 Nucleated Red Blood Cells % 0.0 Neutrophils # 13.4 H Lymphocytes # 1.9 Monocytes # 0.7 Eosinophils # 0.3 Basophils # 0.1 Nucleated Red Blood Cells # 0.0 Sodium Level 139 Potassium Level 3.5 Chloride Level 105 Carbon Dioxide Level 24 Anion Gap 14 Blood Urea Nitrogen 10 Creatinine 0.57 Glucose Level 123 Calcium Level 8.5 Phenytoin (Dilantin) Level 11.7 Test 10/31/16 06:50 10/31/16 09:04 Bedside Glucose 99 112 Medications Medications Current Medications Famotidine (Pepcid) 20 mg Q12 PO Last administered on 10/31/16 09:02; Admin Dose 20 MG; Start 10/28/16 at 09:00 Dextrose (D50w Syringe) 25 ml Q15M PRN IV Till BS 80 mg/dL or above x2; Start 10/28/16 at 09:00 Dextrose (D50w Syringe) 50 ml Q15M PRN IV Till BS 80 mg/dL or above x2; Start 10/28/16 at 09:00 Miscellaneous Information 1 ea NOTE XX ; Start 10/28/16 at 14:00 Glucose (Glutose) 15 gm Q15M PRN PO DECREASED GLUCOSE; Start 10/28/16 at 14:00 Glucose (Glutose) 22.5 gm Q15M PRN PO DECREASED GLUCOSE; Start 10/28/16 at 14: 00 Dextrose (D50w Syringe) 25 ml Q15M PRN IV DECREASED GLUCOSE; Start 10/28/16 at 14:00 Dextrose (D50w Syringe) 50 ml Q15M PRN IV DECREASED GLUCOSE; Start 10/28/16 at 14:00 Glucagon (Glucagen) 1 mg Q15M PRN IM DECREASED GLUCOSE; Start 10/28/16 at 14:00 Glucose (Glutose) 15 gm Q15M PRN BUCCAL DECREASED GLUCOSE; Start 10/28/16 at 14 :00 Midazolam HCl (Versed) 1 mg ONCE PRN IV ANXIETY Last administered on 10/29/16 12:20; Admin Dose 1 MG; Start 10/28/16 at 20:00 Levetiracetam (Keppra) 1,000 mg TID PO Last administered on 10/31/16 09:02; Admin Dose 1,000 MG; Start 10/30/16 at 13:00 Phenytoin (Dilantin) 300 mg HS PO ; Start 10/31/16 at 21:00 Lorazepam (Ativan) 1 mg Q4H PRN IV ANXIETY Last administered on 10/31/16 04:31 ; Admin Dose 1 MG; Start 10/31/16 at 03:30 BERKLEY QUINTERO MD Oct 31, 2016 10:01
--- NOTE | 2016-10-31 10:46 | RADRPT ---
PROCEDURE: CT Brain without contrast. CLINICAL INDICATION: Intracerebral hemorrhage TECHNIQUE: Routine CT scan of the brain was performed on a high resolution multi detector scanner without intravenous contrast. One or more of the following dose reduction techniques were used: Auto mated exposure control; Adjustment of the mA and/or kV according to patient size; Use of iterative r econstruction technique. CTDI = 43 mGy. DLP = 630 mGy-cm. COMPARISON: CT brain 10/28/2016, MRI brain 10/29/2016 FINDINGS: Hemorrhage: Hemorrhagic contusions involving the bilateral frontal lobes, right greater than left, a re unchanged appearance. No new areas of hemorrhage are seen. Slightly increase edema is seen surr ounding this contusion without midline shift or herniation. Acute ischemic changes: No evidence of acute ischemic changes. Parenchymal volume: Mild central parenchymal volume loss is evident. Ventricular system: Mild - moderate disproportionate enlargement of the ventricular system in compar jessica to the overlying sulci is unchanged. No evidence of intraventricular blood products. Chronic changes: Encephalomalacia involving the inferior frontal lobes from prior trauma is again no teo. Mild chronic-appearing microvascular scan changes of the supratentorial white matter are again noted. Atherosclerotic calcifications of the cavernous portions of both internal carotid arteries a re present. Extracranial soft tissues: Unremarkable. Calvarium: No fractures. Postoperative changes from bilateral frontal craniotomy are unchanged. Paranasal sinuses: Visualized paranasal sinuses are clear. Mastoid air cells: Visualized mastoid air cells are clear. IMPRESSION: Unchanged appearance of bilateral frontal hemorrhagic contusions without areas of new hemorrhage. Mild hydrocephalus is unchanged. RPTAT: AADD .Candido Ray MD, MD Date Time Electronically viewed and signed by .Candido Ray MD, on 10/31/2016 10:45 .B/
[2016-10-31] MEDS: PHENYTOIN 100 MG CAP PO SCH (21:20)
[2016-11-01] VITALS (29 sets, daily range): BP systolic 101–148; BP diastolic 62–101; PULSE 75–96; RESP 8–25
[2016-11-01] MEDS: INSULIN ASPART [NOVOLOG] 3 ML PEN SC SCH ×4 (07:05→21:00)
[2016-11-01] MEDS: LEVETIRACETAM 500 MG TAB PO SCH ×3 (09:19→21:49)
[2016-11-01] MEDS: FAMOTIDINE 20 MG TAB PO SCH ×2 (09:19→21:48)
--- NOTE | 2016-11-01 11:05 | PN ---
Date/Time of Note Date/Time of Note DATE: 11/01/16 TIME: 11:05 Assessment/Plan VTE Prophylaxis VTE Prophylaxis Intervention: SCD's Lines/Catheters IV [facility] Type (from [facility]): Saline Lock Urinary Cath still in place: No Assessment/Plan Assessment/Plan 56 yo F with pmhx brain tumor sp resection brought in by family following a seizure, neuroimaging revealed a 4 cm R frontal ICH. #ICH: neurosurgery and neurology following BP control, BG control sp speech eval PT/OT evals once seizures under better control AEDs as per neuro Etio of ICH unclear. Pt without a h/o HTN and BPs have been ok here. Possibly 2/ 2 fall? Pt not on any anticoagulation as outpatient cont ICU level care-->to floor when cleared by neuro/neurosurg. needs better seizure control SCDs only Subjective 24 Hr Interval Summary Free Text/Dictation No complaints. Per notes still having absence episodes. Exam/Review of Systems Vital Signs Vitals Vital Signs Date Time Temp Pulse Resp B/P Pulse Ox O2 Delivery O2 Flow Rate FiO2 11/01/16 08:23 84 11/01/16 08:00 98.3 17 108/93 100 10/31/16 20:00 Room Air 10/28/16 10:08 4.0 Intake and Output 10/31/16 10/31/16 11/01/16 15:00 23:00 07:00 Intake Total 480 ml 540 ml Balance 480 ml 540 ml Exam nad laying in bed no mrg lungs clear abd soft moves exts freely Results Result Diagram: 10/31/16 0524 10/31/16 0524 Results 24 hrs Laboratory Tests Test 10/31/16 12:35 10/31/16 17:27 10/31/16 21:26 11/01/16 07:05 Bedside Glucose 110 107 106 127 Medications Medications Current Medications Famotidine (Pepcid) 20 mg Q12 PO Last administered on 11/01/16t 09:19; Admin Dose 20 MG; Start 10/28/16 at 09:00 Dextrose (D50w Syringe) 25 ml Q15M PRN IV Till BS 80 mg/dL or above x2; Start 10/28/16 at 09:00 Dextrose (D50w Syringe) 50 ml Q15M PRN IV Till BS 80 mg/dL or above x2; Start 10/28/16 at 09:00 Miscellaneous Information 1 ea NOTE XX ; Start 10/28/16 at 14:00 Glucose (Glutose) 15 gm Q15M PRN PO DECREASED GLUCOSE; Start 10/28/16 at 14:00 Glucose (Glutose) 22.5 gm Q15M PRN PO DECREASED GLUCOSE; Start 10/28/16 at 14: 00 Dextrose (D50w Syringe) 25 ml Q15M PRN IV DECREASED GLUCOSE; Start 10/28/16 at 14:00 Dextrose (D50w Syringe) 50 ml Q15M PRN IV DECREASED GLUCOSE; Start 10/28/16 at 14:00 Glucagon (Glucagen) 1 mg Q15M PRN IM DECREASED GLUCOSE; Start 10/28/16 at 14:00 Glucose (Glutose) 15 gm Q15M PRN BUCCAL DECREASED GLUCOSE; Start 10/28/16 at 14 :00 Midazolam HCl (Versed) 1 mg ONCE PRN IV ANXIETY Last administered on 10/29/16 12:20; Admin Dose 1 MG; Start 10/28/16 at 20:00 Levetiracetam (Keppra) 1,000 mg TID PO Last administered on 11/01/16 09:19; Admin Dose 1,000 MG; Start 10/30/16 at 13:00 Phenytoin (Dilantin) 300 mg HS PO Last administered on 10/31/16 21:20; Admin Dose 300 MG; Start 10/31/16 at 21:00 Lorazepam (Ativan) 1 mg Q4H PRN IV ANXIETY Last administered on 10/31/16 21:20 ; Admin Dose 1 MG; Start 10/31/16 at 03:30 BERKLEY QUINTERO MD Nov 01, 2016 11:05
--- NOTE | 2016-11-01 12:58 | CONS ---
Date/Time of Note Date/Time of Note DATE: 11/01/16 TIME: 12:54 Consult Date/Type/Reason Admit Date/Time Oct 28, 2016 at 05:48 Type of Consultation: neurology Subjective multiple second-minute lasting episodes of decreased responsiveness, speech arrest, per son Objective Vital Signs Date Time Temp Pulse Resp B/P Pulse Ox O2 Delivery O2 Flow Rate FiO2 11/01/16 12:40 90 11/01/16 08:00 98.3 17 108/93 100 10/31/16 20:00 Room Air 10/28/16 10:08 4.0 Intake and Output 10/31/16 10/31/16 11/01/16 15:00 23:00 07:00 Intake Total 480 ml 540 ml Balance 480 ml 540 ml Results/Medications Result Diagram: 10/31/16 0524 10/31/16 0524 Results 24 hrs Laboratory Tests Test 10/31/16 17:27 10/31/16 21:26 11/01/16 07:05 11/01/16 11:24 Bedside Glucose 107 106 127 133 Medications Current Medications Famotidine (Pepcid) 20 mg Q12 PO Last administered on 11/01/16t 09:19; Admin Dose 20 MG; Start 10/28/16 at 09:00 Dextrose (D50w Syringe) 25 ml Q15M PRN IV Till BS 80 mg/dL or above x2; Start 10/28/16 at 09:00 Dextrose (D50w Syringe) 50 ml Q15M PRN IV Till BS 80 mg/dL or above x2; Start 10/28/16 at 09:00 Miscellaneous Information 1 ea NOTE XX ; Start 10/28/16 at 14:00 Glucose (Glutose) 15 gm Q15M PRN PO DECREASED GLUCOSE; Start 10/28/16 at 14:00 Glucose (Glutose) 22.5 gm Q15M PRN PO DECREASED GLUCOSE; Start 10/28/16 at 14: 00 Dextrose (D50w Syringe) 25 ml Q15M PRN IV DECREASED GLUCOSE; Start 10/28/16 at 14:00 Dextrose (D50w Syringe) 50 ml Q15M PRN IV DECREASED GLUCOSE; Start 10/28/16 at 14:00 Glucagon (Glucagen) 1 mg Q15M PRN IM DECREASED GLUCOSE; Start 10/28/16 at 14:00 Glucose (Glutose) 15 gm Q15M PRN BUCCAL DECREASED GLUCOSE; Start 10/28/16 at 14 :00 Midazolam HCl (Versed) 1 mg ONCE PRN IV ANXIETY Last administered on 10/29/16 12:20; Admin Dose 1 MG; Start 10/28/16 at 20:00 Levetiracetam (Keppra) 1,000 mg TID PO Last administered on 11/01/16 09:19; Admin Dose 1,000 MG; Start 10/30/16 at 13:00 Phenytoin (Dilantin) 300 mg HS PO Last administered on 10/31/16 21:20; Admin Dose 300 MG; Start 10/31/16 at 21:00 Lorazepam (Ativan) 1 mg Q4H PRN IV ANXIETY Last administered on 10/31/16 21:20 ; Admin Dose 1 MG; Start 10/31/16 at 03:30 Assessment/Plan Chief Complaint/Hosp Course PHYSICAL EXAMINATION: GENERAL: Not in acute distress, lying in bed. HEENT: Normocephalic, atraumatic head. NECK: No carotid bruits. No thyromegaly. LUNGS: Clear to auscultation bilaterally. CARDIAC: Normal cardiac rhythm and sounds. ABDOMEN: Soft. EXTREMITIES: No cyanosis, clubbing, or edema. Tenderness to palpation in the right buttock and lumbar spinous processes. NEUROLOGIC: She is awake, alert, and oriented x 2 with fluent speech. Cranial nerve examination shows intact visual hunt bilaterally. Pupils round, reactive to light from 3 to 2 mm bilaterally. Extraocular movements intact without nystagmus. Symmetrical face. Preserved facial strength and sensation. Tongue is in midline. Palate elevates symmetrically. Motor strength examination is preserved in all extremities. Normal bulk, tone, and strength. Sensory examination shows normal perception of pinprick and touch. Deep tendon reflexes 2+ . Equivocal toes bilaterally. Coordination preserved on [id number] testing. No dysmetria or tremor. Gait was not assessed. Observed having episode of speech arrest, eyes open, with unresponsiveness x 10 sec. 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 No hx of trauma or signs of trauma. Bleeding may relate to neoplasm. Now on keppra, dilantin still seizures. I'll add vimpat. Problems: MONA CAMP MD Nov 01, 2016 12:58
[2016-11-01] MEDS ORDERED: PHENYTOIN 500 MG in SOD CHLORIDE 0.9% 100 ML IV ONE (14:00)
[2016-11-01] MEDS: LACOSAMIDE (100 MG/10 ML PO SYR) PO SCH ×2 (14:57→22:21)
[2016-11-01] MEDS: PHENYTOIN 100 MG CAP PO SCH (21:00)
[2016-11-02] VITALS (23 sets, daily range): BP systolic 102–139; BP diastolic 64–97; PULSE 75–95; RESP 11–36
[2016-11-02] MEDS: INSULIN ASPART [NOVOLOG] 3 ML PEN SC SCH ×4 (06:59→20:52)
[2016-11-02] MEDS: LACOSAMIDE (100 MG/10 ML PO SYR) PO SCH ×2 (08:41→22:38)
[2016-11-02] MEDS: FAMOTIDINE 20 MG TAB PO SCH ×2 (08:41→20:53)
[2016-11-02] MEDS: LEVETIRACETAM 500 MG TAB PO SCH ×3 (08:41→20:53)
--- NOTE | 2016-11-02 08:45 | PN ---
Date/Time of Note Date/Time of Note DATE: 11/02/16 TIME: 08:44 Assessment/Plan VTE Prophylaxis VTE Prophylaxis Intervention: SCD's Lines/Catheters [facility] Peripheral IV Urinary Cath still in place: No Assessment/Plan Assessment/Plan 56 yo F with pmhx brain tumor sp resection brought in by family following a seizure, neuroimaging revealed a 4 cm R frontal ICH. #ICH: neurosurgery and neurology following BP control, BG control PT/OT evals once seizures under better control-->likely will order tomorrow AEDs as per neuro and NS Etio of ICH unclear. Pt without a h/o HTN and BPs have been ok here. Possibly 2/ 2 fall. Per family pt was having absence eps for 1-2 days prior to admission Pt not on any anticoagulation as outpatient transfer from ICU to tele with sitter SCDs only Subjective 24 Hr Interval Summary Free Text/Dictation Fewer absence episodes per night nurse. Sleeping this AM Exam/Review of Systems Vital Signs Vitals Vital Signs Date Time Temp Pulse Resp B/P Pulse Ox O2 Delivery O2 Flow Rate FiO2 11/02/16 08:00 98.2 79 15 104/72 97 Room Air 11/02/16 05:29 2.0 Intake and Output 11/01/16 11/01/16 11/02/16 15:00 23:00 07:00 Intake Total 480 ml 630 ml 180 ml Balance 480 ml 630 ml 180 ml Exam nad, laying on her side, sleeping no mrg lungs clear abd soft no rashes dilantin level low Results Result Diagram: 10/31/16 0524 10/31/16 0524 Results 24 hrs Laboratory Tests Test 11/01/16 11:24 11/01/16 16:34 11/01/16 21:43 11/02/16 04:20 Bedside Glucose 133 109 136 Phenytoin (Dilantin) Level 9.1 L Test 11/02/16 06:50 Bedside Glucose 121 Medications Medications Current Medications Famotidine (Pepcid) 20 mg Q12 PO Last administered on 11/02/16t 08:41; Admin Dose 20 MG; Start 10/28/16 at 09:00 Dextrose (D50w Syringe) 25 ml Q15M PRN IV Till BS 80 mg/dL or above x2; Start 10/28/16 at 09:00 Dextrose (D50w Syringe) 50 ml Q15M PRN IV Till BS 80 mg/dL or above x2; Start 10/28/16 at 09:00 Miscellaneous Information 1 ea NOTE XX ; Start 10/28/16 at 14:00 Glucose (Glutose) 15 gm Q15M PRN PO DECREASED GLUCOSE; Start 10/28/16 at 14:00 Glucose (Glutose) 22.5 gm Q15M PRN PO DECREASED GLUCOSE; Start 10/28/16 at 14: 00 Dextrose (D50w Syringe) 25 ml Q15M PRN IV DECREASED GLUCOSE; Start 10/28/16 at 14:00 Dextrose (D50w Syringe) 50 ml Q15M PRN IV DECREASED GLUCOSE; Start 10/28/16 at 14:00 Glucagon (Glucagen) 1 mg Q15M PRN IM DECREASED GLUCOSE; Start 10/28/16 at 14:00 Glucose (Glutose) 15 gm Q15M PRN BUCCAL DECREASED GLUCOSE; Start 10/28/16 at 14 :00 Midazolam HCl (Versed) 1 mg ONCE PRN IV ANXIETY Last administered on 10/29/16 12:20; Admin Dose 1 MG; Start 10/28/16 at 20:00 Levetiracetam (Keppra) 1,000 mg TID PO Last administered on 11/02/16 08:41; Admin Dose 1,000 MG; Start 10/30/16 at 13:00 Lorazepam (Ativan) 1 mg Q4H PRN IV ANXIETY Last administered on 10/31/16 21:20 ; Admin Dose 1 MG; Start 10/31/16 at 03:30 Phenytoin (Dilantin) 200 mg BID PO Last administered on 11/02/16 08:41; Admin Dose 200 MG; Start 11/02/16 at 09:00 Lacosamide (Vimpat Liq) 100 mg BID PO Last administered on 11/02/16 08:41; Admin Dose 100 MG; Start 11/01/16 at 13:00 BERKLEY QUINTERO MD Nov 02, 2016 08:45
[2016-11-02] MEDS ORDERED: PHENYTOIN 100 MG CAP PO SCH (09:00)
--- NOTE | 2016-11-02 10:34 | CONS ---
Date/Time of Note Date/Time of Note DATE: 11/02/16 TIME: 10:32 Consult Date/Type/Reason Admit Date/Time Oct 28, 2016 at 05:48 Type of Consultation: neurology Subjective no seizures per nurse Objective Vital Signs Date Time Temp Pulse Resp B/P Pulse Ox O2 Delivery O2 Flow Rate FiO2 11/02/16 10:00 85 17 121/75 94 Room Air 11/02/16 08:00 98.2 11/02/16 05:29 2.0 Intake and Output 11/01/16 11/01/16 11/02/16 14:59 22:59 06:59 Intake Total 480 ml 530 ml 280 ml Balance 480 ml 530 ml 280 ml Results/Medications Result Diagram: 10/31/1652310/31/16523 Results 24 hrs Laboratory Tests Test 11/01/16 11:24 11/01/16 16:34 11/01/16 21:43 11/02/16 04:20 Bedside Glucose 133 109 136 Phenytoin (Dilantin) Level 9.1 L Test 11/02/16 06:50 11/02/16 08:47 Bedside Glucose 121 110 Medications Current Medications Famotidine (Pepcid) 20 mg Q12 PO Last administered on 11/02/16t 08:41; Admin Dose 20 MG; Start 10/28/16 at 09:00 Dextrose (D50w Syringe) 25 ml Q15M PRN IV Till BS 80 mg/dL or above x2; Start 10/28/16 at 09:00 Dextrose (D50w Syringe) 50 ml Q15M PRN IV Till BS 80 mg/dL or above x2; Start 10/28/16 at 09:00 Miscellaneous Information 1 ea NOTE XX ; Start 10/28/16 at 14:00 Glucose (Glutose) 15 gm Q15M PRN PO DECREASED GLUCOSE; Start 10/28/16 at 14:00 Glucose (Glutose) 22.5 gm Q15M PRN PO DECREASED GLUCOSE; Start 10/28/16 at 14: 00 Dextrose (D50w Syringe) 25 ml Q15M PRN IV DECREASED GLUCOSE; Start 10/28/16 at 14:00 Dextrose (D50w Syringe) 50 ml Q15M PRN IV DECREASED GLUCOSE; Start 10/28/16 at 14:00 Glucagon (Glucagen) 1 mg Q15M PRN IM DECREASED GLUCOSE; Start 10/28/16 at 14:00 Glucose (Glutose) 15 gm Q15M PRN BUCCAL DECREASED GLUCOSE; Start 10/28/16 at 14 :00 Midazolam HCl (Versed) 1 mg ONCE PRN IV ANXIETY Last administered on 10/29/16 12:20; Admin Dose 1 MG; Start 10/28/16 at 20:00 Levetiracetam (Keppra) 1,000 mg TID PO Last administered on 11/02/16 08:41; Admin Dose 1,000 MG; Start 10/30/16 at 13:00 Lorazepam (Ativan) 1 mg Q4H PRN IV ANXIETY Last administered on 10/31/16 21:20 ; Admin Dose 1 MG; Start 10/31/16 at 03:30 Phenytoin (Dilantin) 200 mg BID PO Last administered on 11/02/16 08:41; Admin Dose 200 MG; Start 11/02/16 at 09:00 Lacosamide (Vimpat Liq) 100 mg BID PO Last administered on 11/02/16 08:41; Admin Dose 100 MG; Start 11/01/16 at 13:00 Assessment/Plan Chief Complaint/Hosp Course PHYSICAL EXAMINATION: GENERAL: Not in acute distress, lying in bed. HEENT: Normocephalic, atraumatic head. NECK: No carotid bruits. No thyromegaly. LUNGS: Clear to auscultation bilaterally. CARDIAC: Normal cardiac rhythm and sounds. ABDOMEN: Soft. EXTREMITIES: No cyanosis, clubbing, or edema. Tenderness to palpation in the right buttock and lumbar spinous processes. NEUROLOGIC: She is awake, alert, and oriented x 2 with fluent speech. Cranial nerve examination shows intact visual hunt bilaterally. Pupils round, reactive to light from 3 to 2 mm bilaterally. Extraocular movements intact without nystagmus. Symmetrical face. Preserved facial strength and sensation. Tongue is in midline. Palate elevates symmetrically. Motor strength examination is preserved in all extremities. Normal bulk, tone, and strength. Sensory examination shows normal perception of pinprick and touch. Deep tendon reflexes 2+ . Equivocal toes bilaterally. Coordination preserved on eogtrz-at-felcsh testing. No dysmetria or tremor. Gait was not assessed. Observed having episode of speech arrest, eyes open, with unresponsiveness x 10 sec. 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 No hx of trauma or signs of trauma. Bleeding may relate to neoplasm. Now on keclement sousa lvel 9., will increase dose, cont vimpat. Radiology to compare to ol MRI (family brought). OK for tele Problems: MONA CAMP MD Nov 02, 2016 10:34
[2016-11-02] MEDS: PHENYTOIN 100 MG CAP PO SCH ×2 (12:23→20:52)
[2016-11-03] VITALS (16 sets, daily range): BP systolic 94–149; BP diastolic 61–92; PULSE 72–87; RESP 16–22
[2016-11-03 05:43] LABS: BASOPHIL # 0.1 10^3/ul (0.0-0.1); BASOPHILS % 0.4 % (0.0-2.0); EOSINOPHILS # 0.3 10^3/ul (0.0-0.5); EOSINOPHILS % 2.8 % (0.0-7.0); HEMATOCRIT 37.9 % (37.0-47.0); HEMOGLOBIN 11.4 g/dl (12.0-16.0); LYMPHOCYTES # 2.6 10^3/ul (0.8-2.9); LYMPHOCYTES % 22.4 % (15.0-51.0); MEAN CORPUSCULAR HEMOGLOBIN 24.1 pg (29.0-33.0); MEAN CORPUSCULAR HGB CONC 30.1 g/dl (32.0-37.0); MEAN CORPUSCULAR VOLUME 80.1 fl (82.0-101.0); MEAN PLATELET VOLUME 10.8 fl (7.4-10.4); MONOCYTE # 0.7 10^3/ul (0.3-0.9); PLATELET COUNT 334 10^3/UL (140-415); RED BLOOD COUNT 4.73 10^6/ul (4.20-5.40); RED CELL DISTRIBUTION WIDTH 15.8 % (11.5-14.5); WHITE BLOOD COUNT 11.8 10^3/ul (4.8-10.8)
[2016-11-03 05:50] LABS: ADD SCAN DIFF NO
[2016-11-03 06:06] LABS: CALCIUM 8.5 mg/dl (8.4-10.2); CREATININE 0.7 mg/dl (0.44-1.00); POTASSIUM 3.9 mmol/L (3.5-5.1)
[2016-11-03] MEDS: INSULIN ASPART [NOVOLOG] 3 ML PEN SC SCH ×4 (07:25→21:00)
[2016-11-03] MEDS: FAMOTIDINE 20 MG TAB PO SCH ×2 (08:41→21:26)
[2016-11-03] MEDS: PHENYTOIN 100 MG CAP PO SCH ×3 (08:41→21:27)
[2016-11-03] MEDS: LEVETIRACETAM 500 MG TAB PO SCH ×3 (08:41→21:26)
[2016-11-03] MEDS: LACOSAMIDE (100 MG/10 ML PO SYR) PO SCH ×2 (08:41→21:33)
--- NOTE | 2016-11-03 13:37 | PN ---
Date/Time of Note Date/Time of Note DATE: 11/03/16 TIME: 13:37 Assessment/Plan VTE Prophylaxis VTE Prophylaxis Intervention: SCD's Lines/Catheters IV C[facility]ter Type (from [facility]): Peripheral IV Urinary Cath still in place: No Assessment/Plan Assessment/Plan 56 yo F with pmhx brain tumor sp resection brought in by family following a seizure, neuroimaging revealed a 4 cm R frontal ICH. #ICH: neurosurgery and neurology following BP control, BG control PT/OT evals AEDs as per neuro and NS Etio of ICH unclear. Pt without a h/o HTN and BPs have been ok here. Possibly 2/ 2 fall. Per family pt was having absence eps for 1-2 days prior to admission. Possibly pt having seizures at home and fell which resulted in ICH Pt not on any anticoagulation as outpatient SCDs only Subjective 24 Hr Interval Summary Free Text/Dictation Still with absence episodes per nursing Exam/Review of Systems Vital Signs Vitals Vital Signs Date Time Temp Pulse Resp B/P Pulse Ox O2 Delivery O2 Flow Rate FiO2 11/03/16 12:36 81 11/03/16 11:20 98.0 18 128/61 95 11/03/16 06:00 Room Air 11/02/16 05:29 2.0 Intake and Output 11/02/16 11/02/16 11/03/16 15:00 23:00 07:00 Intake Total 960 ml 590 ml 0 ml Balance 960 ml 590 ml 0 ml Exam nad, laying in bed no mrg lungs clear abd soft no rashes Results Result Diagram: 11/03/16 0505 11/03/16 0505 Results 24 hrs Laboratory Tests Test 11/02/16 17:28 11/02/16 20:52 11/03/16 05:05 11/03/16 07:46 Bedside Glucose 111 126 99 White Blood Count 11.8 #H Red Blood Count 4.73 Hemoglobin 11.4 L Hematocrit 37.9 Mean Corpuscular Volume 80.1 L Mean Corpuscular Hemoglobin 24.1 L Mean Corpuscular Hemoglobin Concent 30.1 L Red Cell Distribution Width 15.8 H Platelet Count 334 Mean Platelet Volume 10.8 H Neutrophils % 68.0 Lymphocytes % 22.4 Monocytes % 6.0 Eosinophils % 2.8 Basophils % 0.4 Nucleated Red Blood Cells % 0.0 Neutrophils # 8.0 H Lymphocytes # 2.6 Monocytes # 0.7 Eosinophils # 0.3 Basophils # 0.1 Nucleated Red Blood Cells # 0.0 Sodium Level 139 Potassium Level 3.9 Chloride Level 104 Carbon Dioxide Level 28 Anion Gap 11 Blood Urea Nitrogen 12 Creatinine 0.70 Glucose Level 100 Calcium Level 8.5 Test 11/03/16 12:13 Bedside Glucose 95 Medications Medications Current Medications Famotidine (Pepcid) 20 mg Q12 PO Last administered on 11/03/16 08:41; Admin Dose 20 MG; Start 10/28/16 at 09:00 Dextrose (D50w Syringe) 25 ml Q15M PRN IV Till BS 80 mg/dL or above x2; Start 10/28/16 at 09:00 Dextrose (D50w Syringe) 50 ml Q15M PRN IV Till BS 80 mg/dL or above x2; Start 10/28/16 at 09:00 Miscellaneous Information 1 ea NOTE XX ; Start 10/28/16 at 14:00 Glucose (Glutose) 15 gm Q15M PRN PO DECREASED GLUCOSE; Start 10/28/16 at 14:00 Glucose (Glutose) 22.5 gm Q15M PRN PO DECREASED GLUCOSE; Start 10/28/16 at 14: 00 Dextrose (D50w Syringe) 25 ml Q15M PRN IV DECREASED GLUCOSE; Start 10/28/16 at 14:00 Dextrose (D50w Syringe) 50 ml Q15M PRN IV DECREASED GLUCOSE; Start 10/28/16 at 14:00 Glucagon (Glucagen) 1 mg Q15M PRN IM DECREASED GLUCOSE; Start 10/28/16 at 14:00 Glucose (Glutose) 15 gm Q15M PRN BUCCAL DECREASED GLUCOSE; Start 10/28/16 at 14 :00 Midazolam HCl (Versed) 1 mg ONCE PRN IV ANXIETY Last administered on 10/29/16 12:20; Admin Dose 1 MG; Start 10/28/16 at 20:00 Levetiracetam (Keppra) 1,000 mg TID PO Last administered on 11/03/16 08:41; Admin Dose 1,000 MG; Start 10/30/16 at 13:00 Lorazepam (Ativan) 1 mg Q4H PRN IV ANXIETY Last administered on 10/31/16 21:20 ; Admin Dose 1 MG; Start 10/31/16 at 03:30 Lacosamide (Vimpat Liq) 100 mg BID PO Last administered on 11/03/16 08:41; Admin Dose 100 MG; Start 11/01/16 at 13:00 Phenytoin (Dilantin) 200 mg TID PO Last administered on 11/03/16 08:41; Admin Dose 200 MG; Start 11/02/16 at 13:00 BERKLEY QUINTERO MD Nov 03, 2016 13:37
--- NOTE | 2016-11-03 15:43 | CONS ---
Date/Time of Note Date/Time of Note DATE: 11/03/16 TIME: 15:41 Consult Date/Type/Reason Admit Date/Time Oct 28, 2016 at 05:48 Type of Consultation: neurology Subjective 1 focal seizure per nurse this am Objective Vital Signs Date Time Temp Pulse Resp B/P Pulse Ox O2 Delivery O2 Flow Rate FiO2 11/03/16 15:30 98.1 83 17 129/68 94 11/03/16 06:00 Room Air 11/02/16 05:29 2.0 Intake and Output 11/02/16 11/02/16 11/03/16 15:00 23:00 07:00 Intake Total 960 ml 590 ml 0 ml Balance 960 ml 590 ml 0 ml Results/Medications Result Diagram: 11/03/16 0505 11/03/16 0505 Results 24 hrs Laboratory Tests Test 11/02/16 17:28 11/02/16 20:52 11/03/16 05:05 11/03/16 07:46 Bedside Glucose 111 126 99 White Blood Count 11.8 #H Red Blood Count 4.73 Hemoglobin 11.4 L Hematocrit 37.9 Mean Corpuscular Volume 80.1 L Mean Corpuscular Hemoglobin 24.1 L Mean Corpuscular Hemoglobin Concent 30.1 L Red Cell Distribution Width 15.8 H Platelet Count 334 Mean Platelet Volume 10.8 H Neutrophils % 68.0 Lymphocytes % 22.4 Monocytes % 6.0 Eosinophils % 2.8 Basophils % 0.4 Nucleated Red Blood Cells % 0.0 Neutrophils # 8.0 H Lymphocytes # 2.6 Monocytes # 0.7 Eosinophils # 0.3 Basophils # 0.1 Nucleated Red Blood Cells # 0.0 Sodium Level 139 Potassium Level 3.9 Chloride Level 104 Carbon Dioxide Level 28 Anion Gap 11 Blood Urea Nitrogen 12 Creatinine 0.70 Glucose Level 100 Calcium Level 8.5 Test 11/03/16 12:13 Bedside Glucose 95 Medications Current Medications Famotidine (Pepcid) 20 mg Q12 PO Last administered on 11/03/16t 08:41; Admin Dose 20 MG; Start 10/28/16 at 09:00 Dextrose (D50w Syringe) 25 ml Q15M PRN IV Till BS 80 mg/dL or above x2; Start 10/28/16 at 09:00 Dextrose (D50w Syringe) 50 ml Q15M PRN IV Till BS 80 mg/dL or above x2; Start 10/28/16 at 09:00 Miscellaneous Information 1 ea NOTE XX ; Start 10/28/16 at 14:00 Glucose (Glutose) 15 gm Q15M PRN PO DECREASED GLUCOSE; Start 10/28/16 at 14:00 Glucose (Glutose) 22.5 gm Q15M PRN PO DECREASED GLUCOSE; Start 10/28/16 at 14: 00 Dextrose (D50w Syringe) 25 ml Q15M PRN IV DECREASED GLUCOSE; Start 10/28/16 at 14:00 Dextrose (D50w Syringe) 50 ml Q15M PRN IV DECREASED GLUCOSE; Start 10/28/16 at 14:00 Glucagon (Glucagen) 1 mg Q15M PRN IM DECREASED GLUCOSE; Start 10/28/16 at 14:00 Glucose (Glutose) 15 gm Q15M PRN BUCCAL DECREASED GLUCOSE; Start 10/28/16 at 14 :00 Midazolam HCl (Versed) 1 mg ONCE PRN IV ANXIETY Last administered on 10/29/16 12:20; Admin Dose 1 MG; Start 10/28/16 at 20:00 Levetiracetam (Keppra) 1,000 mg TID PO Last administered on 11/03/16 14:38; Admin Dose 1,000 MG; Start 10/30/16 at 13:00 Lorazepam (Ativan) 1 mg Q4H PRN IV ANXIETY Last administered on 10/31/16 21:20 ; Admin Dose 1 MG; Start 10/31/16 at 03:30 Lacosamide (Vimpat Liq) 100 mg BID PO Last administered on 11/03/16 08:41; Admin Dose 100 MG; Start 11/01/16 at 13:00 Phenytoin (Dilantin) 200 mg TID PO Last administered on 11/03/16 14:39; Admin Dose 200 MG; Start 11/02/16 at 13:00 Assessment/Plan Chief Complaint/Hosp Course PHYSICAL EXAMINATION: GENERAL: Not in acute distress, lying in bed. HEENT: Normocephalic, atraumatic head. NECK: No carotid bruits. No thyromegaly. LUNGS: Clear to auscultation bilaterally. CARDIAC: Normal cardiac rhythm and sounds. ABDOMEN: Soft. EXTREMITIES: No cyanosis, clubbing, or edema. Tenderness to palpation in the right buttock and lumbar spinous processes. NEUROLOGIC: She is awake, alert, and oriented x 2 with fluent speech. Cranial nerve examination shows intact visual hunt bilaterally. Pupils round, reactive to light from 3 to 2 mm bilaterally. Extraocular movements intact without nystagmus. Symmetrical face. Preserved facial strength and sensation. Tongue is in midline. Palate elevates symmetrically. Motor strength examination is preserved in all extremities. Normal bulk, tone, and strength. Sensory examination shows normal perception of pinprick and touch. Deep tendon reflexes 2+ . Equivocal toes bilaterally. Coordination preserved on tedgdx-le-qhinki testing. No dysmetria or tremor. Gait was not assessed. Observed having episode of speech arrest, eyes open, with unresponsiveness x 10 sec. 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 No hx of trauma or signs of trauma. Bleeding may relate to neoplasm. Now on keppra, dilantin level was 9, dose increased new level tomorrow, increase vimpat to 150 bid . Problems: MONA CAMP MD Nov 03, 2016 15:43
[2016-11-03] MEDS ORDERED: LORAZEPAM 1 MG TAB PO PRN (17:00)
[2016-11-04] VITALS (11 sets, daily range): BP systolic 92–146; BP diastolic 49–70; PULSE 65–82; RESP 18–21
[2016-11-04] MEDS: INSULIN ASPART [NOVOLOG] 3 ML PEN SC SCH ×4 (07:25→20:51)
[2016-11-04] MEDS: FAMOTIDINE 20 MG TAB PO SCH ×2 (08:14→20:55)
[2016-11-04] MEDS: LEVETIRACETAM 500 MG TAB PO SCH ×3 (08:14→20:54)
[2016-11-04] MEDS: PHENYTOIN 100 MG CAP PO SCH ×3 (08:15→20:54)
[2016-11-04] MEDS: LACOSAMIDE (100 MG/10 ML PO SYR) PO SCH ×2 (08:15→20:53)
--- NOTE | 2016-11-04 11:45 | PN ---
Date/Time of Note Date/Time of Note DATE: 11/04/16 TIME: 11:43 Assessment/Plan VTE Prophylaxis VTE Prophylaxis Intervention: SCD's Lines/Catheters IV C[facility]ter Type (from [facility]): Peripheral IV Urinary Cath still in place: No Assessment/Plan Chief Complaint/Hosp Course 1. Seizure disorder. Continue anticonvulsants as per neurology. Seizure precautions. 2. Acute right frontal intracranial hemorrhage with surrounding edema and localized mass-effect. Status post evaluation by neurosurgery. No surgical interventions. 3. Frontal astrocytoma. Continue anticonvulsants as per neurology. Status post chemotherapy, radiation, and surgery 5 years ago. 4. Type 2 diabetes mellitus. Hemoglobin A1c 7.2. Continue sliding scale insulin. Blood sugars well controlled. 5. Leukocytosis. Etiology unclear. Improving. Monitor. 6. Fluids, electrolytes, and nutrition. Carbohydrate controlled diet. 7. DVT prophylaxis. Bilateral sequential compression devices. 8. Gastrointestinal prophylaxis. Histamine 2 receptor blockers. 9. Plan. Continue anticonvulsants as per neurology. Safety and seizure precautions. Continue physical therapy. Case discussed with . Problems: Subjective 24 Hr Interval Summary Free Text/Dictation Had an absence seizure the previous evening. Denies any headache. Exam/Review of Systems Vital Signs Vitals Vital Signs Date Time Temp Pulse Resp B/P Pulse Ox O2 Delivery O2 Flow Rate FiO2 11/04/16 08:11 98.0 72 18 112/70 98 11/03/16 06:00 Room Air 11/02/16 05:29 2.0 Intake and Output 11/03/16 11/03/16 11/04/16 14:59 22:59 06:59 Intake Total 300 ml Balance 300 ml Exam General: Morbidly obese build 56 year-old female lying in bed in no apparent distress. HEENT: Normocephalic. Eyes: Anicteric sclerae, conjunctivae clear. ENT: Nasal septum midline, oral mucosa moist. Neck supple, no JVD noticed. Respiratory: Bilaterally clear breath sounds. No use of accessory muscles of respiration. No adventitious breath sounds. Cardiovascular: S1, S2 heard. No murmurs or gallops. Abdomen: Soft, nontender, and nondistended. Bowel sounds positive in all 4 quadrants. Genitourinary: Deferred. Extremities: No cyanosis, no clubbing, no edema. Peripheral pulses palpable. Neurologic: Cranial nerves II through XII grossly intact. The patient is awake and alert. Oriented to place, person and purpose. Periods of impulsiveness and forgetfulness. Skin: Normal skin turgor. No skin rashes. Results Result Diagram: 11/03/16 0505 11/03/16 0505 Results 24 hrs Laboratory Tests Test 11/03/16 12:13 11/03/16 17:39 11/03/16 21:25 11/04/16 07:58 Bedside Glucose 95 124 114 120 Test 11/04/16 10:57 Phenytoin (Dilantin) Level 11.8 Medications Medications Current Medications Famotidine (Pepcid) 20 mg Q12 PO Last administered on 11/04/16 08:14; Admin Dose 20 MG; Start 10/28/16 at 09:00 Dextrose (D50w Syringe) 25 ml Q15M PRN IV Till BS 80 mg/dL or above x2; Start 10/28/16 at 09:00 Dextrose (D50w Syringe) 50 ml Q15M PRN IV Till BS 80 mg/dL or above x2; Start 10/28/16 at 09:00 Miscellaneous Information 1 ea NOTE XX ; Start 10/28/16 at 14:00 Glucose (Glutose) 15 gm Q15M PRN PO DECREASED GLUCOSE; Start 10/28/16 at 14:00 Glucose (Glutose) 22.5 gm Q15M PRN PO DECREASED GLUCOSE; Start 10/28/16 at 14: 00 Dextrose (D50w Syringe) 25 ml Q15M PRN IV DECREASED GLUCOSE; Start 10/28/16 at 14:00 Dextrose (D50w Syringe) 50 ml Q15M PRN IV DECREASED GLUCOSE; Start 10/28/16 at 14:00 Glucagon (Glucagen) 1 mg Q15M PRN IM DECREASED GLUCOSE; Start 10/28/16 at 14:00 Glucose (Glutose) 15 gm Q15M PRN BUCCAL DECREASED GLUCOSE; Start 10/28/16 at 14 :00 Midazolam HCl (Versed) 1 mg ONCE PRN IV ANXIETY Last administered on 10/29/16 12:20; Admin Dose 1 MG; Start 10/28/16 at 20:00 Levetiracetam (Keppra) 1,000 mg TID PO Last administered on 11/04/16 08:14; Admin Dose 1,000 MG; Start 10/30/16 at 13:00 Phenytoin (Dilantin) 200 mg TID PO Last administered on 11/04/16 08:15; Admin Dose 200 MG; Start 11/02/16 at 13:00 Lacosamide (Vimpat Liq) 150 mg BID PO Last administered on 11/04/16 08:15; Admin Dose 150 MG; Start 11/03/16 at 21:00 Lorazepam (Ativan) 1 mg Q4H PRN PO ANXIETY; Start 11/03/16 at 17:[address] NP Nov 04, 2016 11:44
--- NOTE | 2016-11-04 11:55 | CONS ---
Date/Time of Note Date/Time of Note DATE: 11/04/16 TIME: 11:51 Consult Date/Type/Reason Admit Date/Time Oct 28, 2016 at 05:48 Type of Consultation: neurology Subjective no seizures Objective Vital Signs Date Time Temp Pulse Resp B/P Pulse Ox O2 Delivery O2 Flow Rate FiO2 11/04/16 08:11 98.0 72 18 112/70 98 11/03/16 06:00 Room Air 11/02/16 05:29 2.0 Intake and Output 11/03/16 11/03/16 11/04/16 14:59 22:59 06:59 Intake Total 300 ml Balance 300 ml Results/Medications Result Diagram: 11/03/16 0505 11/03/16 0505 Results 24 hrs Laboratory Tests Test 11/03/16 12:13 11/03/16 17:39 11/03/16 21:25 11/04/16 07:58 Bedside Glucose 95 124 114 120 Test 11/04/16 10:57 Phenytoin (Dilantin) Level 11.8 Medications Current Medications Famotidine (Pepcid) 20 mg Q12 PO Last administered on 11/04/16t 08:14; Admin Dose 20 MG; Start 10/28/16 at 09:00 Dextrose (D50w Syringe) 25 ml Q15M PRN IV Till BS 80 mg/dL or above x2; Start 10/28/16 at 09:00 Dextrose (D50w Syringe) 50 ml Q15M PRN IV Till BS 80 mg/dL or above x2; Start 10/28/16 at 09:00 Miscellaneous Information 1 ea NOTE XX ; Start 10/28/16 at 14:00 Glucose (Glutose) 15 gm Q15M PRN PO DECREASED GLUCOSE; Start 10/28/16 at 14:00 Glucose (Glutose) 22.5 gm Q15M PRN PO DECREASED GLUCOSE; Start 10/28/16 at 14: 00 Dextrose (D50w Syringe) 25 ml Q15M PRN IV DECREASED GLUCOSE; Start 10/28/16 at 14:00 Dextrose (D50w Syringe) 50 ml Q15M PRN IV DECREASED GLUCOSE; Start 10/28/16 at 14:00 Glucagon (Glucagen) 1 mg Q15M PRN IM DECREASED GLUCOSE; Start 10/28/16 at 14:00 Glucose (Glutose) 15 gm Q15M PRN BUCCAL DECREASED GLUCOSE; Start 10/28/16 at 14 :00 Midazolam HCl (Versed) 1 mg ONCE PRN IV ANXIETY Last administered on 10/29/16 12:20; Admin Dose 1 MG; Start 10/28/16 at 20:00 Levetiracetam (Keppra) 1,000 mg TID PO Last administered on 11/04/16 08:14; Admin Dose 1,000 MG; Start 10/30/16 at 13:00 Phenytoin (Dilantin) 200 mg TID PO Last administered on 11/04/16 08:15; Admin Dose 200 MG; Start 11/02/16 at 13:00 Lacosamide (Vimpat Liq) 150 mg BID PO Last administered on 11/04/16 08:15; Admin Dose 150 MG; Start 11/03/16 at 21:00 Lorazepam (Ativan) 1 mg Q4H PRN PO ANXIETY; Start 11/03/16 at 17:00 Assessment/Plan Chief Complaint/Hosp Course PHYSICAL EXAMINATION: GENERAL: Not in acute distress, lying in bed. HEENT: Normocephalic, atraumatic head. NECK: No carotid bruits. No thyromegaly. LUNGS: Clear to auscultation bilaterally. CARDIAC: Normal cardiac rhythm and sounds. ABDOMEN: Soft. EXTREMITIES: No cyanosis, clubbing, or edema. Tenderness to palpation in the right buttock and lumbar spinous processes. NEUROLOGIC: She is awake, alert, and oriented x 2 with fluent speech. Cranial nerve examination shows intact visual hunt bilaterally. Pupils round, reactive to light from 3 to 2 mm bilaterally. Extraocular movements intact without nystagmus. Symmetrical face. Preserved facial strength and sensation. Tongue is in midline. Palate elevates symmetrically. Motor strength examination is preserved in all extremities. Normal bulk, tone, and strength. Sensory examination shows normal perception of pinprick and touch. Deep tendon reflexes 2+ . Equivocal toes bilaterally. Coordination preserved on eynpsx-ku-[id number] testing. No dysmetria or tremor. Gait was not assessed. 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 No hx of trauma or signs of trauma. Bleeding may relate to neoplasm. Seizure d/o. Continue current keppra, dilantin level 12, vimpat OK to d/c from my perspective. She needs referral to neurooncologist for follow up of brain tumor. She does not drive. Problems: MONA CAMP MD Nov 04, 2016 11:55
[2016-11-05] VITALS (8 sets, daily range): BP systolic 113–136; BP diastolic 59–71; PULSE 68–82; RESP 15–20
[2016-11-05 06:07] LABS: ADD SCAN DIFF NO
[2016-11-05 06:16] LABS: BASOPHIL # 0.1 10^3/ul (0.0-0.1); BASOPHILS % 0.4 % (0.0-2.0); EOSINOPHILS # 0.4 10^3/ul (0.0-0.5); EOSINOPHILS % 2.9 % (0.0-7.0); HEMATOCRIT 39.9 % (37.0-47.0); HEMOGLOBIN 11.8 g/dl (12.0-16.0); LYMPHOCYTES # 2.7 10^3/ul (0.8-2.9); LYMPHOCYTES % 20.9 % (15.0-51.0); MEAN CORPUSCULAR HEMOGLOBIN 23.9 pg (29.0-33.0); MEAN CORPUSCULAR HGB CONC 29.6 g/dl (32.0-37.0); MEAN CORPUSCULAR VOLUME 80.9 fl (82.0-101.0); MEAN PLATELET VOLUME 10.7 fl (7.4-10.4); MONOCYTE # 0.7 10^3/ul (0.3-0.9); MONOCYTES % 5.8 % (0.0-11.0); NEUTROPHIL # 8.8 10^3/ul (1.6-7.5); NEUTROPHILS % 69.5 % (39.0-77.0); PLATELET COUNT 349 10^3/UL (140-415); RED BLOOD COUNT 4.93 10^6/ul (4.20-5.40); RED CELL DISTRIBUTION WIDTH 15.9 % (11.5-14.5); WHITE BLOOD COUNT 12.7 10^3/ul (4.8-10.8)
[2016-11-05 06:46] LABS: CHOL/HDL RATIO 4.9 RATIO; MAGNESIUM 2.2 mg/dl (1.7-2.5); PHOSPHORUS 3.5 mg/dl (2.5-4.9)
[2016-11-05 06:55] LABS: ALBUMIN 4.1 g/dl (3.3-4.9); ALBUMIN/GLOBULIN RATIO 1.24; CALCIUM 8.8 mg/dl (8.4-10.2); CREATININE 0.65 mg/dl (0.44-1.00); POTASSIUM 4.1 mmol/L (3.5-5.1); TOTAL PROTEIN 7.4 g/dl (6.1-8.1)
[2016-11-05] MEDS: INSULIN ASPART [NOVOLOG] 3 ML PEN SC SCH ×2 (07:25→11:20)
[2016-11-05] MEDS: FAMOTIDINE 20 MG TAB PO SCH (08:15)
[2016-11-05] MEDS: LEVETIRACETAM 500 MG TAB PO SCH ×2 (08:15→12:34)
[2016-11-05] MEDS: LACOSAMIDE (100 MG/10 ML PO SYR) PO SCH (08:16)
[2016-11-05] MEDS: PHENYTOIN 100 MG CAP PO SCH ×2 (08:16→12:34)
--- NOTE | 2016-11-05 09:18 | PDOCDIS ---
Discharge Instructions DIAGNOSIS Discharge Diagnosis Seizure disorder. Diabetes mellitus. CONDITION Patient Condition: Stable HOME CARE INSTRUCTIONS: Special Diet: Carbohydrate controlled OTHER ORDERS: Other Orders: 1. Take medications as per prescription. 2. Activities with assist. 3. Take a carbohydrate controlled diet. 4. Follow-up with your primary care physician 2 weeks [case management to arrange]. 5. Follow-up with outpatient neurology in 2 weeks[case management to arrange]. ISMAEL LANE NP Nov 05, 2016 09:18
[2016-11-05] MEDS ORDERED: PHEN100C PO (09:21)
[2016-11-05] MEDS ORDERED: LACO10SO PO (09:21)
[2016-11-05] MEDS ORDERED: LEVE-5 PO (09:21)
[2016-11-05] MEDS ORDERED: METF500T4 PO (09:21)
[2016-11-05] MEDS ORDERED: BLOO1EAC85 MC (09:25)
[2016-11-05] MEDS ORDERED: BLOO-432 MC (09:25)
[2016-11-05] MEDS ORDERED: LANC-831 MC (09:25)
--- NOTE | 2016-11-05 09:31 | DS ---
Date/Time of Note Date/Time of Note DATE: 11/05/16 TIME: 09:31 Discharge Summary Admission/Discharge Info Admit Date/Time Oct 28, 2016 at 05:48 Discharge Date/Time Discharge Diagnosis 1. Seizure disorder. 2. Type II diabetes mellitus. 3. Acute right frontal intracranial hemorrhage with surrounding edema and localized mass-effect. Status post evaluation by neurosurgery. No surgical interventions. 4. Frontal astrocytoma. Status post chemotherapy, radiation, and surgery 5 years ago. 5. Obesity. Patient Condition: Stable Consults 1. MONA CAMP MD, Neurology. 2. KASSIDY AGUILAR MD, Neurosurgery. Procedures Head CTA IMPRESSION: 1. 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 2. Mild mass effect with inferior displacement of the sylvian branches of the right middle cerebral artery. 3. No CTA evidence for an arteriovenous malformation. Brain CT IMPRESSION: 1. Prior right frontotemporal and left frontal craniotomies. 2. Acute right frontal intracranial hemorrhage with surrounding edema and localized mass effect. 3. Extensive bifrontal encephalomalacia. 4. Mild diffuse volume loss. Brain MRI IMPRESSION: 1. Stable large right and small left frontal lobe hemorrhagic contusions. No new or acute intracranial hemorrhage. 2. Stable bifrontal encephalomalacia with vasogenic edema surrounding the areas of hemorrhagic contusion and areas of gliosis. 3. Ventriculomegaly compatible with mild chronic appearing hydrocephalus . Electroencephalography Background activity of small-medium amplitude ranging in frequency 8-10 Hz, at times 4-6 Hz, intermixing with smaller and faster beta activity. No ongoing seizures. Intermittent right frontal spikes, likely epileptogenic given the history. Impression: Abnormal study secondary to background slowing and right frontal epileptiform activity. Hx of Present Illness This is a 56-year-old female with past medical history of astrocytoma status post resection and was brought to the emergency room because of witnessed seizures. As per report the patient had an episode of tonic-clonic activity with the tongue biting. The patient has a remote history of seizure disorder. However, the patient was not any anticonvulsants at home. In the emergency room , the patient underwent a brain CT scan that showed acute right frontal intracranial hemorrhage with surrounding edema and localized mass effect. CT also revealed extensive bifrontal encephalomalacia. Patient was started on anticonvulsants. Neurosurgery consult was called. Patient was transferred to intensive care unit. Hospital Course The patient was evaluated by neurosurgery and neurosurgery recommended no surgical intervention. The patient was continued on anticonvulsants. The patient's anticonvulsant therapy was adjusted multiple times to obtain optimal control of her seizures. The patient underwent electroencephalography that was positive for seizures. Patient has prior history of frontal astrocytoma. She is status post surgical resection, chemotherapy, and radiation. There was no evidence of any malignancy. The patient was newly diagnosed to have diabetes mellitus. The patient was maintained on sliding scale insulin with improved blood sugars. The patient will be discharged home on metformin. The patient was seen and evaluated by physical therapy. Physical therapy recommended ambulation with a front wheel walker and home health for home health physical therapy and home safety evaluation. The patient does not drive. The patient had a stable hospital course. The patient was cleared by consultants to be discharged home. The patient does not have a primary care physician. Case management order was put in for arranging for a primary care physician as well as for outpatient neurology follow-up. Patient was given prescription for all her medications including prescription for glucometer and supplies for glucometer. Discharge Instructions 1. Take medications as per prescription. 2. Activities with assist. 3. Take a carbohydrate controlled diet. 4. Follow-up with your primary care physician 2 weeks [case management to arrange]. 5. Follow-up with outpatient neurology in 2 weeks[case management to arrange]. Case discussed with . Home Meds Active Scripts Blood Glucose Strips-Dispmeter ([place] [address] Blood Glucose System) 1 Each Kit, 1 EACH MC, #100 Prov:ISMAEL LANE NP 11/05/16 Lancets (Blood Lancets) 1 Each Each, 1 EACH MC, #100 Prov:ISMAEL LANE NP 11/05/16 Blood-Glucose Meter (Blood Glucose Meter) 1 Each Each, 1 EACH MC TID, #1 Prov:ISMAEL LANE NP 11/05/16 Metformin* (Glucophage*) 500 Mg Tab, 500 MG PO BID WITH MEALS, #60 TAB Prov:ISMAEL LANE NP 11/05/16 Phenytoin* Sodium Extended (Dilantin*) 100 Mg Capsule, 200 MG PO TID for 30 Days , CAP Prov:ISMAEL LANE NP 11/05/16 Levetiracetam* (Keppra*) 500 Mg Tablet, 1000 MG PO TID for 30 Days, TAB Prov:ISMAEL LANE NP 11/05/16 Lacosamide (Vimpat) 10 Mg/1 Ml Solution, 150 MG PO BID for 30 Days Prov:ISMAEL LANE BLANKBOOK FORWARDER 11/05/16 Follow-up Plan 1. Follow up with outpatient primary care physician in 2 weeks [case management to arrange]. 2. Follow up with outpatient neurology in 2 weeks [case management arranged]. Primary Care Provider None. Time spent on discharge: > 30 minutes Pending Labs Laboratory Tests Test 11/04/16 10:57 11/04/16 12:06 11/04/16 17:07 11/04/16 20:48 Phenytoin (Dilantin) Level 11.8ug/ml (10.0-20.0) Bedside Glucose 103mg/dL (70-220) 146mg/dL (70-220) 143mg/dL (70-220) Test 11/05/16 05:30 11/05/16 08:12 White Blood Count 12.710^3/ul (4.8-10.8) Red Blood Count 4.9310^6/ul (4.20-5.40) Hemoglobin 11.8g/dl (12.0-16.0) Hematocrit 39.9% (37.0-47.0) Mean Corpuscular Volume 80.9fl (82.0-101.0) Mean Corpuscular Hemoglobin 23.9pg (29.0-33.0) Mean Corpuscular Hemoglobin Concent 29.6g/dl (32.0-37.0) Red Cell Distribution Width 15.9% (11.5-14.5) Platelet Count 17285^3/UL (140-415) Mean Platelet Volume 10.7fl (7.4-10.4) Neutrophils % 69.5% (39.0-77.0) Lymphocytes % 20.9% (15.0-51.0) Monocytes % 5.8% (0.0-11.0) Eosinophils % 2.9% (0.0-7.0) Basophils % 0.4% (0.0-2.0) Nucleated Red Blood Cells % 0.0/100WBC (0.0-0.0) Neutrophils # 8.810^3/ul (1.6-7.5) Lymphocytes # 2.710^3/ul (0.8-2.9) Monocytes # 0.710^3/ul (0.3-0.9) Eosinophils # 0.410^3/ul (0.0-0.5) Basophils # 0.110^3/ul (0.0-0.1) Nucleated Red Blood Cells # 0.010^3/ul (0.0-0.0) Sodium Level 142mmol/L (135-144) Potassium Level 4.1mmol/L (3.5-5.1) Chloride Level 102mmol/L (97-110) Carbon Dioxide Level 25mmol/L (21-31) Anion Gap 19 (8-16) Blood Urea Nitrogen 12mg/dl (7-20) Creatinine 0.65mg/dl (0.44-1.00) Glucose Level 114mg/dl (70-220) Calcium Level 8.8mg/dl (8.4-10.2) Phosphorus Level 3.5mg/dl (2.5-4.9) Magnesium Level 2.2mg/dl (1.7-2.5) Total Bilirubin 0.0mg/dl (0.2-1.3) Direct Bilirubin 0.00mg/dl (0.00-0.20) Indirect Bilirubin 0.0mg/dl (0-1.1) Aspartate Amino Transf (AST/SGOT) 21IU/L (15-46) Alanine Aminotransferase (ALT/SGPT) 38IU/L (13-69) Alkaline Phosphatase 143IU/L (42-121) Total Protein 7.4g/dl (6.1-8.1) Albumin 4.1g/dl (3.3-4.9) Globulin 3.30g/dl (1.3-3.2) Albumin/Globulin Ratio 1.24 Triglycerides Level 139mg/dl (0-149) Cholesterol Level 187mg/dl (100-200) LDL Cholesterol, Calculated 121mg/dl HDL Cholesterol 38mg/dl (37-92) Cholesterol/HDL Ratio 4.9RATIO Bedside Glucose 104mg/dL (70-220) ISMAEL LANE NP Nov 05, 2016 09:31
== END 2016-11-05 16:26 | disposition home health service (06) | DRG 65 ==
LOC: E/R 03:05 → ICU 05:48 → TEL 11-03 06:49
PROVIDERS: ADMIT Family Medicine; ATTEND Family Medicine
DX: I62.9 Nontraumatic intracranial hemorrhage, unspecified (principal); C71.1 Malignant neoplasm of frontal lobe; G40.909 Epilepsy, unspecified, not intractable, without status epilepticus; E11.9 Type 2 diabetes mellitus without complications; D72.829 Elevated white blood cell count, unspecified
CPT/HCPCS: 36415; 70450; 70496; 70553; 71010; 80048; 80053; 80061; 80185; 82962; 83036; 83735; 84100; 84484; 85025; 85610; 85730; 87081; 92610; 93005; 95819; 96361; 96374; 96375; 96376; 97162; 97166; J1165; J1815; J1953; J2060; J2250; J3480; J7030; Q9967

== ENCOUNTER 2016-11-11 12:57 | Day surgery (SDC) | payer BC ==
[~2016-11-11] VITALS: Ht 147.3 cm; Wt 97.5 kg
[~2016-11-11 12:57] MED LIST changes: +BLOO-432 MC; +BLOO1EAC85 MC; +LACO10SO PO; +LANC-831 MC; +LEVE-5 PO; -LORAZEPAM 2 MG INJ ONE; +METF500T4 PO; +PHEN100C PO
[2016-11-11 13:28] VITALS: Ht 147.3 cm; Wt 97.5 kg
== END 2016-11-11 14:37 | disposition home or self-care (01) ==
LOC: GIL 12:57
PROVIDERS: ATTEND Internal Medicine Gastroenterology
DX: Z12.11 Encounter for screening for malignant neoplasm of colon (principal); Z53.9 Procedure and treatment not carried out, unspecified reason

== ENCOUNTER → 2016-11-12 | Outpatient (CLI) | payer BC ==
[~2016-11-12] MED LIST changes: -BLOO-432 MC; -BLOO1EAC85 MC; -LANC-831 MC
== END | disposition home or self-care (01) ==
LOC: DIB 13:49
PROVIDERS: ATTEND Emergency Medicine
DX: Z02.9 Encounter for administrative examinations, unspecified (principal)

== ENCOUNTER 2016-11-19 01:36 | Inpatient (IN) | payer BC ==
[2016-11-19] VITALS (8 sets, daily range): BP systolic 118–122; BP diastolic 53–65; PULSE 65–80; RESP 15–20; TEMP 98.3; Ht 162.6 cm; Wt 100.0 kg
[~2016-11-19] VITALS: Ht 162.6 cm; Wt 100.0 kg
[~2016-11-19 01:36] MED LIST changes: -METF500T4 PO; -PHEN100C PO
[2016-11-19] MEDS ORDERED: SOD CHLORIDE 0.9% 1,000 ML IV STA (01:49)
[2016-11-19] MEDS ORDERED: LEVETIRACETAM 1000 MG (PMX) 100 ML IVPB STA (01:49)
[2016-11-19] MEDS ORDERED: LORAZEPAM 2 MG INJ IV STA (01:49)
[2016-11-19 02:07] LABS: ADD SCAN DIFF NO
[2016-11-19 02:10] LABS: BASOPHIL # 0.1 10^3/ul (0.0-0.1); BASOPHILS % 0.4 % (0.0-2.0); EOSINOPHILS # 0.3 10^3/ul (0.0-0.5); EOSINOPHILS % 2.3 % (0.0-7.0); HEMATOCRIT 39.9 % (37.0-47.0); LYMPHOCYTES # 2.8 10^3/ul (0.8-2.9); LYMPHOCYTES % 23.2 % (15.0-51.0); MEAN CORPUSCULAR HEMOGLOBIN 24.4 pg (29.0-33.0); MEAN CORPUSCULAR HGB CONC 30.1 g/dl (32.0-37.0); MEAN CORPUSCULAR VOLUME 81.1 fl (82.0-101.0); MONOCYTE # 0.8 10^3/ul (0.3-0.9); MONOCYTES % 6.3 % (0.0-11.0); NEUTROPHIL # 8.1 10^3/ul (1.6-7.5); NEUTROPHILS % 67.5 % (39.0-77.0); PLATELET COUNT 273 10^3/UL (140-415); RED BLOOD COUNT 4.92 10^6/ul (4.20-5.40); RED CELL DISTRIBUTION WIDTH 15.8 % (11.5-14.5); WHITE BLOOD COUNT 11.9 10^3/ul (4.8-10.8)
[2016-11-19 02:28] LABS: CALCIUM 8.1 mg/dl (8.4-10.2); CREATININE 0.64 mg/dl (0.44-1.00); POTASSIUM 3.6 mmol/L (3.5-5.1)
--- NOTE | 2016-11-19 03:04 | RADRPT ---
PROCEDURE: XR Chest. CLINICAL INDICATION: Seizures TECHNIQUE: AP Portable chest. COMPARISON: No pertinent prior examinations were submitted for comparison. FINDINGS: There is mild cardiomegaly. The lungs are clear. The osseous structures are unremarkable. IMPRESSION: No acute findings. RPTAT: HIKT .Mani Lozano MD, Date Time Electronically viewed and signed by .Mani Lozano MD, on 11/19/2016 03:03 .T/
--- NOTE | 2016-11-19 03:53 | RADRPT ---
PROCEDURE: Noncontrast CT Head. CLINICAL INDICATION: Seizure. TECHNIQUE: Noncontrast CT of the head was obtained. The administered radiation dose was CTDI vol = 45 mGy, DLP = 720 mGy-cm. COMPARISON: 10/31/2016 FINDINGS: The ventricles and cortical sulci are mild to moderately enlarged. There is mild to moderate decrea sed attenuation within the periventricular and subcortical white matter compatible with chronic micr ovascular changes. Prior right frontal craniotomy is again noted. An underlying hemorrhage is without definite change in size, measuring 4.2 x 3.1 cm in greatest axial dimensions. The hemorrhage is overall less dense . Mass effect and surrounding edema are similar to the prior. No midline shift is identified. Ther e is no loss of aranda-white differentiation to suggest acute infarction. The orbits are within normal limits. The paranasal sinuses are well aerated. No destructive osseous lesion is identified. IMPRESSION: Evolving right frontal intraparenchymal hemorrhage which is unchanged in size and mildly decreased i n density. No new acute intracranial hemorrhage is identified. Mild to moderate diffuse parenchymal volume loss and chronic microvascular changes. RPTAT: HIKT .Mani Lozano MD, Date Time Electronically viewed and signed by .Mani Lozano MD, on 11/19/2016 03:53 .T/
[2016-11-19] MEDS ORDERED: METF500T4 PO (05:05)
[2016-11-19] MEDS ORDERED: PHEN100C PO (05:05)
--- NOTE | 2016-11-19 05:48 | ERA ---
ER Documentation Chief Complaint Date/Time DATE: 11/19/16 TIME: 05:46 Chief Complaint bib ra from home. witnessed seizure, hx of 1 week ago. HPI 56-year-old female brought in by rescue from home with a mini seizures. History of seizures that started approximately 2 weeks ago. Not on any current meds. Patient had a sub-arachnoid hemorrhage 1 month ago. Upon arrival. The, patient is alert and oriented. Moving all extremities are focally. ROS All systems reviewed and are negative except as per history of present illness. Medications Home Meds Active Scripts Levetiracetam* (Keppra*) 500 Mg Tablet, 1000 MG PO TID for 30 Days, TAB Prov:ISMAEL LANE PACKAGE DYER 11/05/16 Lacosamide (Vimpat) 10 Mg/1 Ml Solution, 150 MG PO BID for 30 Days Prov:ISMAEL LANE PACKAGE DYER 11/05/16 Reported Medications Metformin* (Glucophage*) 500 Mg Tab, 500 MG PO WITH BREAKFAST DINNE, #30 TAB 11/19/16 Phenytoin* Sodium Extended (Dilantin*) 100 Mg Capsule, 100 MG PO HS, CAP 11/19/16 Allergies Allergies: Coded Allergies: No Known Allergy (Unverified , 11/19/16) PMhx/Soc History of Surgery: Yes (brain tumor 2011) Anesthesia Reaction: No Hx Neurological Disorder: Yes (brain tumor, seizures october 2016) Hx Respiratory Disorders: No Hx Cardiac Disorders: No Hx Psychiatric Problems: No Hx Miscellaneous Medical Probl: No Hx Alcohol Use: No Hx Substance Use: No Hx Tobacco Use: No Smoking Status: Never smoker Physical Exam Vitals Vital Signs Date Time Temp Pulse Resp B/P Pulse Ox O2 Delivery O2 Flow Rate FiO2 11/19/16 03:38 74 24 124/77 98 Room Air 2.0 Nasal Cannula 11/19/16 01:49 97.8 81 18 149/77 97 Physical Exam Const: [] Head: Atraumatic Eyes: Normal Conjunctiva ENT: Normal External Ears, Nose and Mouth. Neck: Full range of motion..~ No meningismus. Resp: Clear to auscultation bilaterally Cardio: Regular rate and rhythm, no murmurs Abd: Soft, non tender, non distended. Normal bowel sounds Skin: No petechiae or rashes Back: No midline or flank tenderness Ext: No cyanosis, or edema Neur: Awake and alert Psych: Normal Mood and Affect Result Diagram: 11/19/16 0156 11/19/16 0156 Results 24 hrs Laboratory Tests Test 11/19/16 01:56 11/19/16 02:31 White Blood Count 11.910^3/ul Red Blood Count 4.9210^6/ul Hemoglobin 12.0g/dl Hematocrit 39.9% Mean Corpuscular Volume 81.1fl Mean Corpuscular Hemoglobin 24.4pg Mean Corpuscular Hemoglobin Concent 30.1g/dl Red Cell Distribution Width 15.8% Platelet Count 89297^3/UL Mean Platelet Volume 11.0fl Neutrophils % 67.5% Lymphocytes % 23.2% Monocytes % 6.3% Eosinophils % 2.3% Basophils % 0.4% Nucleated Red Blood Cells % 0.0/100WBC Neutrophils # 8.110^3/ul Lymphocytes # 2.810^3/ul Monocytes # 0.810^3/ul Eosinophils # 0.310^3/ul Basophils # 0.110^3/ul Nucleated Red Blood Cells # 0.010^3/ul Sodium Level 145mmol/L Potassium Level 3.6mmol/L Chloride Level 109mmol/L Carbon Dioxide Level 25mmol/L Anion Gap 15 Blood Urea Nitrogen 16mg/dl Creatinine 0.64mg/dl Glucose Level 138mg/dl Calcium Level 8.1mg/dl Bedside Glucose 139mg/dL Current Medications Medications (Trade) Dose Ordered Sig/Tr Route PRN Reason Start Time Stop Time Status Last Admin Dose Admin Sodium Chloride (NS) 1,000 ml @ 1,000 mls/hr Q1H STAT IV 11/19/16 01:49 11/19/16 02:48 DC 11/19/16 02:24 Lorazepam 1 mg 1 mg ONCE STAT IV 11/19/16 01:49 11/19/16 01:51 DC 11/19/16 02:20 Levetiracetam (Keppra 1,000mg/ 100ml (Pmx)) 100 ml @ 400 mls/hr ONCE STAT IVPB 11/19/16 01:49 11/19/16 02:03 DC 11/19/16 02:24 Procedures/MDM CT shows evolving subarachnoid hemorrhage per radiologist. Please see the auscultation for poor. Emergency room course patient: Patient seen and evaluated. Interesting status. Was given blood work. Had Ativan intravenously for acute seizure prophylaxis along with Keppra for long-term seizure prophylaxis. No further seizure activity in the ER. Given patient's multiple seizures in the past 2 hours, along with history of a subarachnoid bleed that is now completely resolved, decision was made to admit patient to hospitalist. Hospitalist that he will seek neurosurgery consultation. Per neurosurgery note on last admission, no current surgical interventions recommended. Critical Care: Time: 45 minutes Treatments/Evaluations: Close monitoring and treatment of unstable vital signs, cardiorespiratory, and neurologic status, while maintaining tight balance of fluid, respiratory, and cardiac interventions. Departure Diagnosis: Primary Impression: Seizure disorder Condition: Stable LEONIE COVARRUBIAS Nov 19, 2016 05:48
--- NOTE | 2016-11-19 07:18 | HP ---
Date/Time of Note Date/Time of Note DATE: 11/19/16 TIME: 07:07 Assessment/Plan Assessment/Plan Assessment/Plan IMPRESSION 1. Recurrent Seizure 2/2 ICH 2. Recent ICH, CT unchanged with mild decrease in density 3. Hx of Astrocytoma s/p resection PLAN Cont home anti-seizure meds with PRN Ativan Neurology consult credit portfolio advisor consult to sort out insurance issue regarding obtaining meds HPI/ROS Admit Date/Time Admit Date/Time Hx of Present Illness This is a 56-year-old female with past medical history of astrocytoma status post resection, seizure d/o and ICH who was brought to the emergency room because of witnessed seizures. Patient is currently post-ictal and unable to provide hx. Per , pt had what appears to be a tonic-clonic seizure. Pt was admitted here 3 weeks ago after presenting with chief complain of seizure and was discharged after 1 week of hospitalization. At that time, she was found to have ICH, which was conservatively managed. After discharge, pt had difficulty filling her anti-seizure medications because of insurance reason. Today, in ER, pt remained post-ictal even though at times has been following simple commands. CT head showed Evolving right frontal intraparenchymal hemorrhage which is unchanged in size and mildly decreased in density. Mild to moderate diffuse parenchymal volume loss and chronic microvascular changes. No new acute intracranial hemorrhage is identified. . PMH/Family/Social Social History Smoking Status: Never smoker Exam/Review of Systems Vital Signs Vitals Vital Signs Date Time Temp Pulse Resp B/P Pulse Ox O2 Delivery O2 Flow Rate FiO2 11/19/16 06:19 76 78 116/68 98 Nasal Cannula 2.0 11/19/16 01:49 97.8 Intake and Output 11/18/16 11/18/16 11/19/16 15:00 23:00 07:00 Intake Total 1100 ml Balance 1100 ml Labs Result Diagram: 11/19/16 0156 11/19/16 0156 LEONIE LOZA MD Nov 19, 2016 07:17
[2016-11-19] MEDS ORDERED: LORAZEPAM 2 MG INJ IV PRN (07:30)
[2016-11-19] MEDS ORDERED: morphine 2 MG INJ IV PRN (07:30)
[2016-11-19] MEDS ORDERED: ACETAMINOPHEN 325 MG TAB PO PRN (07:30)
[2016-11-19] MEDS ORDERED: NACL 0.9% 3 ML SYG IV SCH (07:30)
[2016-11-19] MEDS ORDERED: GLUCAGON 1 MG INJ IM PRN (08:00)
[2016-11-19] MEDS ORDERED: GLUCOSE GEL 15 GRAM TUBE PO PRN ×2 (08:00)
[2016-11-19] MEDS ORDERED: DEXTROSE 50% 50 ML SYRINGE IV PRN ×2 (08:00)
[2016-11-19] MEDS ORDERED: GLUCOSE GEL 15 GRAM TUBE BUCCAL PRN (08:00)
[2016-11-19] MEDS: LACOSAMIDE (100 MG/10 ML PO SYR) PO SCH ×2 (09:10→23:10)
[2016-11-19] MEDS: metFORMIN 500 MG TAB PO SCH ×2 (09:10→19:50)
[2016-11-19] MEDS: LEVETIRACETAM 500 MG TAB PO SCH ×3 (09:10→21:24)
--- NOTE | 2016-11-19 19:49 | CONS ---
Date/Time of Note Date/Time of Note DATE: 11/19/16 TIME: 19:39 Assessment/Plan Assessment/Plan Chief Complaint/Hosp Course PHYSICAL EXAMINATION: GENERAL: Not in acute distress, lying in bed. HEENT: Normocephalic, atraumatic head. NECK: No carotid bruits. No thyromegaly. LUNGS: Clear to auscultation bilaterally. CARDIAC: Normal cardiac rhythm and sounds. ABDOMEN: Soft. EXTREMITIES: No cyanosis, clubbing, or edema. NEUROLOGIC: She is awake, alert, and oriented x 2 with fluent speech. Cranial nerve examination shows intact visual hunt bilaterally. Pupils round, reactive to light from 3 to 2 mm bilaterally. Extraocular movements intact without nystagmus. Symmetrical face. Preserved facial strength and sensation. Tongue is in midline. Palate elevates symmetrically. Motor strength examination is preserved in all extremities. Normal bulk, tone, and strength. Sensory examination shows normal perception of pinprick and touch. Deep tendon reflexes 2+ . Equivocal toes bilaterally. Coordination preserved on [id number] testing. No dysmetria or tremor. Gait was not assessed. IMPRESSION: Frontal astrocytoma, s/p chemo, radiation and surgery 5 years ago. Bilateral frontal ICH, possible contusion, improving on CT. S/p breakthrough seizure. Pt was on Dilantin 200 tid only since discharge, though was also prescribed Keppra/vimpat. Will restart. Check dilantin level, pt was put on 300 qhs? Problems: Consultation Date/Type/Reason Admit Date/Time Type of Consultation: neurology Hx of Present Illness 56 y/o female admitted following witnessed simple focal seizure, left facial spasms, blinking, speech arrest, full recollection. Recent admission 3 weeks ago for seizures, at that time found to have bilateral right frontal hemorrhage possible contusion. 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 Seizures were controlled, discharged on Vimpat/keppra/dilantin, but was taking Dilantin 200 tid only, could not refilll keppra/vimpat. CT head no acute changes, expected evolution of hemorrhages. No dilantin level. Past Medical History Medical History: diabetes, hypertension Past Surgical History neurosurgery for frontal astrocytoma Family History Significant Family History: no pertinent family hx Social History Alcohol Use: none Smoking Status: Never smoker Exam/Review of Systems Vital Signs Vitals Vital Signs Date Time Temp Pulse Resp B/P Pulse Ox O2 Delivery O2 Flow Rate FiO2 11/19/16 17:52 80 18 118/58 97 Room Air 11/19/16 09:23 98.3 2.0 Intake and Output 11/18/16 11/18/16 11/19/16 15:00 23:00 07:00 Intake Total 1100 ml Balance 1100 ml Results Result Diagram: 11/19/16 0156 11/19/16 0156 Results 24 hrs Laboratory Tests Test 11/19/16 01:56 11/19/16 02:31 White Blood Count 11.9 H Red Blood Count 4.92 Hemoglobin 12.0 Hematocrit 39.9 Mean Corpuscular Volume 81.1 L Mean Corpuscular Hemoglobin 24.4 L Mean Corpuscular Hemoglobin Concent 30.1 L Red Cell Distribution Width 15.8 H Platelet Count 273 # Mean Platelet Volume 11.0 H Neutrophils % 67.5 Lymphocytes % 23.2 Monocytes % 6.3 Eosinophils % 2.3 Basophils % 0.4 Nucleated Red Blood Cells % 0.0 Neutrophils # 8.1 H Lymphocytes # 2.8 Monocytes # 0.8 Eosinophils # 0.3 Basophils # 0.1 Nucleated Red Blood Cells # 0.0 Sodium Level 145 H Potassium Level 3.6 Chloride Level 109 Carbon Dioxide Level 25 Anion Gap 15 Blood Urea Nitrogen 16 Creatinine 0.64 Glucose Level 138 Calcium Level 8.1 L Bedside Glucose 139 Medications Medications Current Medications Lorazepam (Ativan) 2 mg Q1H PRN IV seizure; Start 11/19/16 at 07:30 Acetaminophen (Tylenol Tab) 650 mg Q6H PRN PO PAIN LEVEL 1-3 OR FEVER; Start at 07:30 Morphine Sulfate (morphine) 2 mg Q4H PRN IV PAIN LEVEL 7-10; Start 11/19/16 at 07:30 Lacosamide (Vimpat Liq) 150 mg BID PO Last administered on 11/19/16 09:10; Admin Dose 150 MG; Start 11/19/16 at 09:00 Levetiracetam (Keppra) 1,000 mg TID PO Last administered on 11/19/16 14:38; Admin Dose 1,000 MG; Start 11/19/16 at 09:00 Phenytoin (Dilantin) 100 mg HS PO ; Start 11/19/16 at 21:00 Miscellaneous Information 1 ea NOTE XX ; Start 11/19/16 at 08:00 Glucose (Glutose) 15 gm Q15M PRN PO DECREASED GLUCOSE; Start 11/19/16 at 08:00 Glucose (Glutose) 22.5 gm Q15M PRN PO DECREASED GLUCOSE; Start 11/19/16 at 08: 00 Dextrose (D50w Syringe) 25 ml Q15M PRN IV DECREASED GLUCOSE; Start 11/19/16 at 08:00 Dextrose (D50w Syringe) 50 ml Q15M PRN IV DECREASED GLUCOSE; Start 11/19/16 at 08:00 Glucagon (Glucagen) 1 mg Q15M PRN IM DECREASED GLUCOSE; Start 11/19/16 at 08:00 Glucose (Glutose) 15 gm Q15M PRN BUCCAL DECREASED GLUCOSE; Start 11/19/16 at 08 :00 MONA CAMP MD Nov 19, 2016 19:49
[2016-11-19] MEDS ORDERED: PHENYTOIN 100 MG CAP PO SCH (21:00)
[2016-11-19] MEDS: PHENYTOIN 100 MG CAP PO SCH (21:59)
[2016-11-20] VITALS (13 sets, daily range): BP systolic 99–123; BP diastolic 50–65; PULSE 60–76; RESP 15–19
[2016-11-20] MEDS: metFORMIN 500 MG TAB PO SCH ×2 (08:09→17:20)
[2016-11-20] MEDS: LACOSAMIDE (100 MG/10 ML PO SYR) PO SCH ×2 (08:19→21:17)
[2016-11-20] MEDS: PHENYTOIN 100 MG CAP PO SCH ×3 (08:19→21:17)
[2016-11-20] MEDS: LEVETIRACETAM 500 MG TAB PO SCH ×3 (08:19→21:17)
[2016-11-20 08:33] LABS: ADD SCAN DIFF NO
[2016-11-20 08:40] LABS: BASOPHILS % 0.4 % (0.0-2.0); EOSINOPHILS # 0.3 10^3/ul (0.0-0.5); EOSINOPHILS % 3.2 % (0.0-7.0); HEMATOCRIT 37.3 % (37.0-47.0); HEMOGLOBIN 11.4 g/dl (12.0-16.0); LYMPHOCYTES % 19.9 % (15.0-51.0); MEAN CORPUSCULAR HEMOGLOBIN 24.8 pg (29.0-33.0); MEAN CORPUSCULAR HGB CONC 30.6 g/dl (32.0-37.0); MEAN CORPUSCULAR VOLUME 81.1 fl (82.0-101.0); MEAN PLATELET VOLUME 11.5 fl (7.4-10.4); MONOCYTE # 0.5 10^3/ul (0.3-0.9); MONOCYTES % 5.2 % (0.0-11.0); NEUTROPHIL # 7.1 10^3/ul (1.6-7.5); PLATELET COUNT 280 10^3/UL (140-415); RED CELL DISTRIBUTION WIDTH 15.6 % (11.5-14.5); WHITE BLOOD COUNT 10.1 10^3/ul (4.8-10.8)
[2016-11-20 09:05] LABS: ALBUMIN 3.1 g/dl (3.3-4.9); ALBUMIN/GLOBULIN RATIO 0.91; CREATININE 0.56 mg/dl (0.44-1.00); MAGNESIUM 2.1 mg/dl (1.7-2.5); POTASSIUM 3.8 mmol/L (3.5-5.1); TOTAL PROTEIN 6.5 g/dl (6.1-8.1)
--- NOTE | 2016-11-20 11:47 | PN ---
Date/Time of Note Date/Time of Note DATE: 11/20/16 TIME: 11:40 Assessment/Plan VTE Prophylaxis VTE Prophylaxis Intervention: SCD's Lines/Catheters IV C[facility]ter Type [facility]from [facility]): Saline Lock Assessment/Plan Chief Complaint/Hosp Course Assessment and plan: 56-year-old female with past medical history of astrocytoma status post resection, seizure d/o and ICH who was brought to the emergency room because of witnessed seizures. 1. Recurrent Seizure 2/2 ICH-no seizure activity since admission. Apparently she had not been able to get her antiseizure medicines for the last 3 months as an outpatient. -Continue current seizure medicines, Dilantin level is low. Patient is having some dizziness likely secondary to the patient's seizure medicines, may need to titrate these accordingly -Follow-up neurology recommendations. 2. Recent ICH -recent head CT this admission shows ICH is unchanged with mild decrease in density -Monitor for now, avoid anticoagulants 3. Hx of Astrocytoma s/p resection-no present issues, continue to monitor for now 4. GI prophylaxis: PPI Problems: Subjective 24 Hr Interval Summary Free Text/Dictation Patient seen by neurology team yesterday, also worked with physical therapy this morning. Having some dizziness when ambulating otherwise no acute events overnight, no seizure activity. Exam/Review of Systems Vital Signs Vitals Vital Signs Date Time Temp Pulse Resp B/P Pulse Ox O2 Delivery O2 Flow Rate FiO2 11/20/16 09:05 60 11/20/16 08:09 97.9 18 106/63 94 11/19/16 17:52 Room Air 11/19/16 09:23 2.0 Intake and Output 11/19/16 11/19/16 11/20/16 15:00 23:00 07:00 Intake Total 250 ml Balance 250 ml Exam GENERAL: lying in bed, no acute distress HEENT: Normocephalic, atraumatic head. NECK: No carotid bruits. No thyromegaly. LUNGS: Clear to auscultation bilaterally. CARDIAC: Normal cardiac rhythm and sounds. ABDOMEN: Soft, nontender, no rebound or guarding EXTREMITIES: No cyanosis, clubbing, or edema. NEUROLOGIC: She is awake, alert, and oriented x 2 with fluent speech. Cranial nerve examination shows intact visual hunt bilaterally. Pupils round, reactive to light from 3 to 2 mm bilaterally. Extraocular movements intact without nystagmus. Symmetrical face. Preserved facial strength and sensation. Tongue is in midline. Palate elevates symmetrically. Motor strength examination is preserved in all extremities. Normal bulk, tone, and strength. Sensory examination shows normal perception of pinprick and touch. Deep tendon reflexes 2+ . Equivocal toes bilaterally. Coordination preserved on [id number] testing. No dysmetria or tremor. Gait was not assessed. Results Result Diagram: 11/20/16 0720 11/20/16 0720 Results 24 hrs Laboratory Tests Test 11/20/16 07:20 White Blood Count 10.1 Red Blood Count 4.60 Hemoglobin 11.4 L Hematocrit 37.3 Mean Corpuscular Volume 81.1 L Mean Corpuscular Hemoglobin 24.8 L Mean Corpuscular Hemoglobin Concent 30.6 L Red Cell Distribution Width 15.6 H Platelet Count 280 Mean Platelet Volume 11.5 H Neutrophils % 71.0 Lymphocytes % 19.9 Monocytes % 5.2 Eosinophils % 3.2 Basophils % 0.4 Nucleated Red Blood Cells % 0.0 Neutrophils # 7.1 Lymphocytes # 2.0 Monocytes # 0.5 Eosinophils # 0.3 Basophils # 0.0 Nucleated Red Blood Cells # 0.0 Sodium Level 144 Potassium Level 3.8 Chloride Level 108 Carbon Dioxide Level 24 Anion Gap 16 Blood Urea Nitrogen 9 Creatinine 0.56 Glucose Level 106 Calcium Level 8.0 L Magnesium Level 2.1 Total Bilirubin 0.0 L Direct Bilirubin 0.00 Indirect Bilirubin 0.0 Aspartate Amino Transf (AST/SGOT) 19 Alanine Aminotransferase (ALT/SGPT) 46 Alkaline Phosphatase 170 H Total Protein 6.5 Albumin 3.1 L Globulin 3.40 H Albumin/Globulin Ratio 0.91 Phenytoin (Dilantin) Level < 3.0 L Medications Medications Current Medications Lorazepam (Ativan) 2 mg Q1H PRN IV seizure; Start 11/19/16 at 07:30 Acetaminophen (Tylenol Tab) 650 mg Q6H PRN PO PAIN LEVEL 1-3 OR FEVER; Start at 07:30 Morphine Sulfate (morphine) 2 mg Q4H PRN IV PAIN LEVEL 7-10; Start 11/19/16 at 07:30 Lacosamide (Vimpat Liq) 150 mg BID PO Last administered on 11/20/16t 08:19; Admin Dose 150 MG; Start 11/19/16 at 09:00 Levetiracetam (Keppra) 1,000 mg TID PO Last administered on 11/20/16 08:19; Admin Dose 1,000 MG; Start 11/19/16 at 09:00 Miscellaneous Information 1 ea NOTE XX ; Start 11/19/16 at 08:00 Glucose (Glutose) 15 gm Q15M PRN PO DECREASED GLUCOSE; Start 11/19/16 at 08:00 Glucose (Glutose) 22.5 gm Q15M PRN PO DECREASED GLUCOSE; Start 11/19/16 at 08: 00 Dextrose (D50w Syringe) 25 ml Q15M PRN IV DECREASED GLUCOSE; Start 11/19/16 at 08:00 Dextrose (D50w Syringe) 50 ml Q15M PRN IV DECREASED GLUCOSE; Start 11/19/16 at 08:00 Glucagon (Glucagen) 1 mg Q15M PRN IM DECREASED GLUCOSE; Start 11/19/16 at 08:00 Glucose (Glutose) 15 gm Q15M PRN BUCCAL DECREASED GLUCOSE; Start 11/19/16 at 08 :00 Phenytoin (Dilantin) 200 mg TID PO Last administered on 11/20/16 08:19; Admin Dose 200 MG; Start 11/19/16 at 21:00 BEATRICE MONSON Nov 20, 2016 11:47
[2016-11-20] MEDS: PANTOPRAZOLE (EC) 40 MG TAB PO SCH (12:51)
--- NOTE | 2016-11-20 22:06 | CONS ---
Date/Time of Note Date/Time of Note DATE: 11/20/16 TIME: 22:03 Consult Date/Type/Reason Admit Date/Time Nov 19, 2016 at 10:30 Initial Consult Date Type of Consultation: neurology Subjective no complaints, no seizures, wants to go home Objective Vital Signs Date Time Temp Pulse Resp B/P Pulse Ox O2 Delivery O2 Flow Rate FiO2 11/20/16 20:11 76 11/20/16 20:01 98.3 19 123/62 92 11/20/16 17:12 Room Air 11/19/16 09:23 2.0 Intake and Output 11/19/16 11/19/16 11/20/16 15:00 23:00 07:00 Intake Total 250 ml Balance 250 ml Results/Medications Result Diagram: 11/20/1671911/20/16719 Results 24 hrs Laboratory Tests Test 11/20/16 07:20 White Blood Count 10.1 Red Blood Count 4.60 Hemoglobin 11.4 L Hematocrit 37.3 Mean Corpuscular Volume 81.1 L Mean Corpuscular Hemoglobin 24.8 L Mean Corpuscular Hemoglobin Concent 30.6 L Red Cell Distribution Width 15.6 H Platelet Count 280 Mean Platelet Volume 11.5 H Neutrophils % 71.0 Lymphocytes % 19.9 Monocytes % 5.2 Eosinophils % 3.2 Basophils % 0.4 Nucleated Red Blood Cells % 0.0 Neutrophils # 7.1 Lymphocytes # 2.0 Monocytes # 0.5 Eosinophils # 0.3 Basophils # 0.0 Nucleated Red Blood Cells # 0.0 Sodium Level 144 Potassium Level 3.8 Chloride Level 108 Carbon Dioxide Level 24 Anion Gap 16 Blood Urea Nitrogen 9 Creatinine 0.56 Glucose Level 106 Calcium Level 8.0 L Magnesium Level 2.1 Total Bilirubin 0.0 L Direct Bilirubin 0.00 Indirect Bilirubin 0.0 Aspartate Amino Transf (AST/SGOT) 19 Alanine Aminotransferase (ALT/SGPT) 46 Alkaline Phosphatase 170 H Total Protein 6.5 Albumin 3.1 L Globulin 3.40 H Albumin/Globulin Ratio 0.91 Phenytoin (Dilantin) Level < 3.0 L Medications Current Medications Lorazepam (Ativan) 2 mg Q1H PRN IV seizure; Start 11/19/16 at 07:30 Acetaminophen (Tylenol Tab) 650 mg Q6H PRN PO PAIN LEVEL 1-3 OR FEVER; Start at 07:30 Morphine Sulfate (morphine) 2 mg Q4H PRN IV PAIN LEVEL 7-10; Start 11/19/16 at 07:30 Lacosamide (Vimpat Liq) 150 mg BID PO Last administered on 11/20/16 21:17; Admin Dose 150 MG; Start 11/19/16 at 09:00 Levetiracetam (Keppra) 1,000 mg TID PO Last administered on 11/20/16 21:17; Admin Dose 1,000 MG; Start 11/19/16 at 09:00 Miscellaneous Information 1 ea NOTE XX ; Start 11/19/16 at 08:00 Glucose (Glutose) 15 gm Q15M PRN PO DECREASED GLUCOSE; Start 11/19/16 at 08:00 Glucose (Glutose) 22.5 gm Q15M PRN PO DECREASED GLUCOSE; Start 11/19/16 at 08: 00 Dextrose (D50w Syringe) 25 ml Q15M PRN IV DECREASED GLUCOSE; Start 11/19/16 at 08:00 Dextrose (D50w Syringe) 50 ml Q15M PRN IV DECREASED GLUCOSE; Start 11/19/16 at 08:00 Glucagon (Glucagen) 1 mg Q15M PRN IM DECREASED GLUCOSE; Start 11/19/16 at 08:00 Glucose (Glutose) 15 gm Q15M PRN BUCCAL DECREASED GLUCOSE; Start 11/19/16 at 08 :00 Phenytoin (Dilantin) 200 mg TID PO Last administered on 11/20/16 21:17; Admin Dose 200 MG; Start 11/19/16 at 21:00 Pantoprazole (Protonix Tab) 40 mg DAILY@06 PO Last administered on 11/20/16 12 :51; Admin Dose 40 MG; Start 11/20/16 at 13:00 Assessment/Plan Chief Complaint/Hosp Course PHYSICAL EXAMINATION: GENERAL: Not in acute distress, lying in bed. HEENT: Normocephalic, atraumatic head. NECK: No carotid bruits. No thyromegaly. LUNGS: Clear to auscultation bilaterally. CARDIAC: Normal cardiac rhythm and sounds. ABDOMEN: Soft. EXTREMITIES: No cyanosis, clubbing, or edema. NEUROLOGIC: She is awake, alert, and oriented x 2 with fluent speech. Cranial nerve examination shows intact visual hunt bilaterally. Pupils round, reactive to light from 3 to 2 mm bilaterally. Extraocular movements intact without nystagmus. Symmetrical face. Preserved facial strength and sensation. Tongue is in midline. Palate elevates symmetrically. Motor strength examination is preserved in all extremities. Normal bulk, tone, and strength. Sensory examination shows normal perception of pinprick and touch. Deep tendon reflexes 2+ . Equivocal toes bilaterally. Coordination preserved on [id number] testing. No dysmetria or tremor. Gait normal. IMPRESSION: Frontal astrocytoma, s/p chemo, radiation and surgery 5 years ago. Bilateral frontal ICH, possible contusion 3 weeks ago, improving on CT. S/p breakthrough seizure. Subtherapeutic on Dilantin, I'll upload IV, repeat level in AM. If therapeutic and no seizures/complaints, I would d/c home on Dilantin 200 tid and keppra 1000 tid. Pt is on vimpat now, but likely wont be able to refill, too expensive, and does not coved by her insurance. Problems: MONA CAMP MD Nov 20, 2016 22:06
[2016-11-20] MEDS ORDERED: PHENYTOIN 1,500 MG in SOD CHLORIDE 0.9% 150 ML IV ONE (22:30)
[2016-11-21] VITALS (9 sets, daily range): BP systolic 89–126; BP diastolic 52–72; PULSE 61–77; RESP 18
[2016-11-21] MEDS: PANTOPRAZOLE (EC) 40 MG TAB PO SCH (06:40)
[2016-11-21] MEDS: PHENYTOIN 100 MG CAP PO SCH ×2 (08:15→12:14)
[2016-11-21] MEDS: metFORMIN 500 MG TAB PO SCH ×2 (08:15→17:56)
[2016-11-21] MEDS: LEVETIRACETAM 500 MG TAB PO SCH ×2 (08:15→12:14)
[2016-11-21] MEDS: LACOSAMIDE (100 MG/10 ML PO SYR) PO SCH (08:15)
--- NOTE | 2016-11-21 10:58 | PDOCDIS ---
Discharge Instructions CONDITION Patient Condition: Stable HOME CARE INSTRUCTIONS: Special Diet: regular diet ACTIVITY: Activity Restrictions: Slowly Increase Activity FOLLOW UP/APPOINTMENTS Follow-up Plan Please take your medications as prescribed. Please follow-up with your regular doctor in the clinic in the next 1-2 weeks. It is very important that she gets her prescriptions filled at the pharmacy as soon as you leave the hospital. BEATRICE MONSON. Nov 21, 2016 10:57
[2016-11-21] MEDS ORDERED: PHEN100C PO (10:59)
[2016-11-21] MEDS ORDERED: LEVE-5 PO (10:59)
[2016-11-21] MEDS ORDERED: PHENYTOIN 1,500 MG in SOD CHLORIDE 0.9% 150 ML IV ONE (11:00)
--- NOTE | 2016-11-21 11:13 | DS ---
Date/Time of Note Date/Time of Note DATE: 11/21/16 TIME: 11:10 Discharge Summary Admission/Discharge Info Admit Date/Time Nov 19, 2016 at 10:30 Discharge Date/Time Discharge Diagnosis 1. Recurrent Seizure 2/2 ICH-no seizure activity since admission. 2. Recent ICH -recent head CT this admission shows ICH is unchanged with mild decrease in density 3. Hx of Astrocytoma Patient Condition: Stable Hx of Present Illness Hospital Course 56-year-old female with past medical history of astrocytoma status post resection, seizure d/o and ICH who was brought to the emergency room because of witnessed seizures. Patient presented as post-ictal and was unable to provide hx. Per , pt had what appears to be a tonic-clonic seizure. Pt was admitted here 3 weeks ago after presenting with chief complain of seizure and was discharged after 1 week of hospitalization. At that time, she was found to have ICH, which was conservatively managed. After discharge, pt had difficulty filling her anti-seizure medications because of insurance reason. Patient was admitted to telemetry floor, remained post-ictal even though at times has been following simple commands. CT head showed Evolving right frontal intraparenchymal hemorrhage which is unchanged in size and mildly decreased in density. Mild to moderate diffuse parenchymal volume loss and chronic microvascular changes. No new acute intracranial hemorrhage is identified. She was found with low Dilantin levels and was given loading dose of Dilantin and seen by neurology team. After she was admitted she had no more seizure activities, she eventually was able to tolerate p.o. diet and had normal vital signs. She will be sent home with Dilantin 200 tid and keppra 1000 tid. Pt is on vimpat now, but likely wont be able to refill, too expensive, and does not coved by her insurance. We will also try to set up home health nursing for her as well. NEUROLOGIC: She is awake, alert, and oriented x 2 with fluent speech. Cranial nerve examination shows intact visual hunt bilaterally. Pupils round, reactive to light from 3 to 2 mm bilaterally. Extraocular movements intact without nystagmus. Symmetrical face. Preserved facial strength and sensation. Tongue is in midline. Palate elevates symmetrically. Motor strength examination is preserved in all extremities. Normal bulk, tone, and strength. Sensory examination shows normal perception of pinprick and touch. Deep tendon reflexes 2+ . Equivocal toes bilaterally. Coordination preserved on [id number] testing. No dysmetria or tremor. Gait normal. IMPRESSION: Frontal astrocytoma, s/p chemo, radiation and surgery 5 years ago. Bilateral frontal ICH, possible contusion 3 weeks ago, improving on CT. S/p breakthrough seizure. Home Meds Active Scripts Phenytoin* Sodium Extended (Dilantin*) 100 Mg Capsule, 200 MG PO TID, #90 CAP 6 Refills Prov:BEATRICE MONSON 11/21/16 Levetiracetam* (Keppra*) 500 Mg Tablet, 1000 MG PO TID for 30 Days, #90 TAB 6 Refills Prov:BEATRICE MONSON. 11/21/16 Lacosamide (Vimpat) 10 Mg/1 Ml Solution, 150 MG PO BID for 30 Days Prov:ISMAEL [employer] 11/05/16 Reported Medications Metformin* (Glucophage*) 500 Mg Tab, 500 MG PO WITH BREAKFAST DINNE, #30 TAB 11/19/16 Discontinued Reported Medications Phenytoin* Sodium Extended (Dilantin*) 100 Mg Capsule, 100 MG PO HS, CAP 11/19/16 Primary Care Provider Brian Hong Time spent on discharge: > 30 minutes Pending Labs Laboratory Tests Test 11/21/16 07:27 Phenytoin (Dilantin) Level 3.5ug/ml (10.0-20.0) BEATRICE MONSON Nov 21, 2016 11:13
[2016-11-21] MEDS ORDERED: DIPHENHYDRAMINE 25 MG CAP PO ONE (11:30)
--- NOTE | 2016-11-21 11:35 | CONS ---
Date/Time of Note Date/Time of Note DATE: 11/21/16 TIME: 11:33 Consult Date/Type/Reason Admit Date/Time Nov 19, 2016 at 10:30 Initial Consult Date 11/19/16 Type of Consultation: neurology Reason for Consultation seizures hx of astrocytoma Subjective no seizures overnight did not receive extra Phenytoin load due to complaint of burning planned for now with benadryl Objective Vital Signs Date Time Temp Pulse Resp B/P Pulse Ox O2 Delivery O2 Flow Rate FiO2 11/21/16 08:15 97.7 60 18 126/57 96 11/20/16 17:12 Room Air 11/19/16 09:23 2.0 Intake and Output 11/20/16 11/20/16 11/21/16 15:00 23:00 07:00 Intake Total 500 ml Balance 500 ml Exam NEUROLOGIC: She is awake, alert, and oriented x 2 with fluent speech. Cranial nerve examination shows intact visual hunt bilaterally. Pupils round, reactive to light from 3 to 2 mm bilaterally. Extraocular movements intact without nystagmus. Symmetrical face. Preserved facial strength and sensation. Tongue is in midline. Palate elevates symmetrically. Motor strength examination is preserved in all extremities. Normal bulk, tone, and strength. Sensory examination shows normal perception of pinprick and touch. Deep tendon reflexes 2+ . Equivocal toes bilaterally. Coordination preserved on [id number] testing. No dysmetria or tremor. Gait normal. Results/Medications Result Diagram: 11/20/16 0711/20/16 0720 Results 24 hrs Laboratory Tests Test 11/21/16 07:27 Phenytoin (Dilantin) Level 3.5 L Medications Current Medications Lorazepam (Ativan) 2 mg Q1H PRN IV seizure; Start 11/19/16 at 07:30 Acetaminophen (Tylenol Tab) 650 mg Q6H PRN PO PAIN LEVEL 1-3 OR FEVER; Start at 07:30 Morphine Sulfate (morphine) 2 mg Q4H PRN IV PAIN LEVEL 7-10; Start 11/19/16 at 07:30 Lacosamide (Vimpat Liq) 150 mg BID PO Last administered on 11/21/16t 08:15; Admin Dose 150 MG; Start 11/19/16 at 09:00 Levetiracetam (Keppra) 1,000 mg TID PO Last administered on 11/21/16 08:15; Admin Dose 1,000 MG; Start 11/19/16 at 09:00 Miscellaneous Information 1 ea NOTE XX ; Start 11/19/16 at 08:00 Glucose (Glutose) 15 gm Q15M PRN PO DECREASED GLUCOSE; Start 11/19/16 at 08:00 Glucose (Glutose) 22.5 gm Q15M PRN PO DECREASED GLUCOSE; Start 11/19/16 at 08: 00 Dextrose (D50w Syringe) 25 ml Q15M PRN IV DECREASED GLUCOSE; Start 11/19/16 at 08:00 Dextrose (D50w Syringe) 50 ml Q15M PRN IV DECREASED GLUCOSE; Start 11/19/16 at 08:00 Glucagon (Glucagen) 1 mg Q15M PRN IM DECREASED GLUCOSE; Start 11/19/16 at 08:00 Glucose (Glutose) 15 gm Q15M PRN BUCCAL DECREASED GLUCOSE; Start 11/19/16 at 08 :00 Phenytoin (Dilantin) 200 mg TID PO Last administered on 11/21/16 08:15; Admin Dose 200 MG; Start 11/19/16 at 21:00 Pantoprazole 40 mg 40 mg DAILY@06 PO Last administered on 11/21/16 06:40; Admin Dose 40 MG; Start 11/20/16 at 13:00 Phenytoin/Sodium Chloride (Dilantin/NS) 180 ml @ 180 mls/hr ONCE ONCE IV ; Start 11/21/16 at 11:00; Stop 11/21/16 at 11:59 Diphenhydramine HCl (Benadryl) 25 mg ONCE ONCE PO ; Start 11/21/16 at 11:30; Stop 11/21/16 at 11:31; Status UNV Assessment/Plan Chief Complaint/Hosp Course 56 yo with frontal astrocytoma s/p chemo/XRT and surgery years ago with seizures. Bifrontal ICH possible contusion 3 weeks ago improving. Dilantin subtherapeutic 3.3 , planned for load of 1500 mg IV now. continue on Dilantin 200 mg ER TID, Keppra 1000 TID. outpatient follow up advised Problems: LOTUS SUAREZ MD Nov 21, 2016 11:35
[2016-11-21] MEDS ORDERED: ONDANSETRON 4 MG TAB PO ONE (19:00)
== END 2016-11-21 20:00 | disposition home or self-care (01) | DRG 100 ==
LOC: E/R 01:36 → MS3 10:30 → MS4 21:08
PROVIDERS: ADMIT Internal Medicine; ATTEND Internal Medicine
DX: G40.909 Epilepsy, unspecified, not intractable, without status epilepticus (principal); I61.1 Nontraumatic intracerebral hemorrhage in hemisphere, cortical; Z85.841 Personal history of malignant neoplasm of brain
CPT/HCPCS: 36415; 70450; 71010; 80048; 80053; 80185; 82962; 83735; 85025; 93005; 96365; 96375; 97161; J1165; J1953; J2060; J7030